=== PATIENT | male | born 1965 | race African-American/Black ===

== ENCOUNTER 2020-03-22 10:33 | Inpatient (IN) | payer OTHER ==
--- NOTE | 2020-03-22 10:43 | PDOC ---
Rapid Medical Evaluation Time Seen by Provider: 03/22/20 10:39 Medical Evaluation: Allergies Allergy/AdvReac Type Severity Reaction Status Date / Time Penicillins Allergy Hives Verified 03/22/20 10:39 03/22/20 10:39 CC: esrd on HD ( last 03/19), hx prostate cancer and does not f/u for it, now with swollen and painful testicles. Exam: scrotal area with generalized tenderness Plan: scrotal u/s
--- NOTE | 2020-03-22 12:36 | PDOC ---
History of Present Illness - General Chief Complaint: Pain, Acute Stated Complaint: URINATION PROBLEMS Time Seen by Provider: 03/22/20 10:39 - History of Present Illness Initial Comments: 03/22/20 12:31 54-year-old maleWith a past medical history of diabetes renal disease on dialysis and prostate cancer presents for left-sided testicle pain going on for years increased today without any precipitating event Past History - Medical History Allergies/Adverse Reactions: Allergies Allergy/AdvReac Type Severity Reaction Status Date / Time Penicillins Allergy Hives Verified 03/22/20 10:39 Home Medications: Ambulatory Orders Amlodipine Besylate [Norvasc -] 10 mg PO ASDIR 02/24/15 Aspirin [ASA -] 81 mg PO DAILY 02/24/15 Atorvastatin Ca [Lipitor -] 40 mg PO HS 02/24/15 Furosemide [Lasix -] 40 mg PO DAILY 02/24/15 Hydralazine HCl 100 mg PO ASDIR 02/24/15 Insulin Glargine,Hum.rec.anlog [Lantus Solostar PEN (NF)] 15 units SQ HS 02/24/15 Sevelamer Carbonate [Renvela] 800 mg PO TID 02/24/15 Calcium Carbonate [Calcium] 500 mg PO TID 10/09/16 Cinacalcet HCl [Sensipar] 60 mg PO DAILY 10/09/16 Lisinopril [Prinivil -] 40 mg PO ASDIR 10/16/16 Anemia: No Asthma: No Cancer: No Cardiac Disorders: No CVA: No COPD: Yes CHF: No Dementia: No Diabetes: Yes (IDDM) Dialysis: Yes (M-W-) GI Disorders: No HTN: Yes Hypercholesterolemia: Yes Liver Disease: No Seizures: No Thyroid Disease: No - Immunization History Immunization Up to Date: Yes - Psycho-Social/Smoking History Smoking History: Current every day smoker Have you smoked in the past 12 months: Yes Number of Cigarettes Smoked Daily: 3 Information on smoking cessation initiated: No 'Breaking Loose' booklet given: 10/16/16 - Substance Abuse Hx (Audit-C & DAST Scrn) How often the patient has a drink containing alcohol: Never Score: In Men: 4 or > Positive; In Women: 3 or > Positive: 0 Screen Result (Pos requires Nsg. Audit-10AR): Negative Review of Systems - Review of Systems : Yes: See HPI *Physical Exam - Vital Signs Last Vital Signs Temp Pulse Resp BP Pulse Ox 97.9 F 90 20 110/76 98 03/22/20 10:43 03/22/20 10:39 03/22/20 10:39 03/22/20 10:39 03/22/20 10:39 - Physical Exam 03/22/20 12:35 Left side of the scrotum is large hard with normal skin color and temperature there is tenderness. Medical Decision Making - Medical Decision Making 03/22/20 12:36 Examination and ultrasound consistent with an incarcerated irreducible hernia patient to be admitted to surgery and taken to the operating room lab work ordered Discharge - Discharge Information Problems reviewed: Yes Clinical Impression/Diagnosis: Hernia of scrotum Condition: Stable - Admission Yes - Follow up/Referral - Patient Discharge Instructions - Post Discharge Activity
--- NOTE | 2020-03-22 12:49 | PDOC ---
*Physical Exam - Vital Signs Last Vital Signs Temp Pulse Resp BP Pulse Ox 97.9 F 90 20 110/76 98 03/22/20 10:43 03/22/20 10:39 03/22/20 10:39 03/22/20 10:39 03/22/20 10:39 - Physical Exam 03/22/20 12:46 Awake alert patient is uncomfortable in pain lungs are clear bilaterally heart is regular with any murmurs rubs or gallops abdomen is noted for a lower anterior abdominal wall hernia which is reducible. He also has a large palpable inguinal mass into the scrotum there is tenderness at the left testicle appears to be a hernia which is unreducible extremities are warm well perfused patient is awake alert and oriented x3 ED Treatment Course - RADIOLOGY Radiology Studies Ordered: Category Date Time Status CXRPORT [CHEST X-RAY PORTABLE*] [RAD] Stat Radiology 03/22/20 12:46 Ordered Medical Decision Making - Medical Decision Making 03/22/20 12:47 54-year-old male history of end-stage renal disease hypertension hyperlipidemia and diabetes here today with a left scrotal pain and a inguinal mass since last evening. Patient states the pain is severe 10 out of 10 with no radiation he noted swelling last evening has been unable to reduce it states that he had a previous upper abdominal hernia repair done at [place] many years ago but otherwise no recent abdominal surgeries no nausea no vomiting did not take anything for pain prior to arrival. Patient does receive dialysis Sunday he did not go to dialysis today due to his severe pain Patient was seen and examined in conjunction with Roldan Schneider on my examination he has an reducible left inguinal hernia patient had been sent previously for a scrotal ultrasound shows decreased flow to left testicle plan admission surgery consult discussed with Dr. Burk and his PA Pratibha who will see the patient in the ED patient to be admitted n.p.o. will order morphine for pain control Discharge - Discharge Information Problems reviewed: Yes Clinical Impression/Diagnosis: Hernia of scrotum Condition: Stable - Follow up/Referral - Patient Discharge Instructions - Post Discharge Activity
[2020-03-22] MEDS ORDERED: morphine CARPU-JECT 4 MG/1 ML DISP.SYRIN IVPUSH ONE (12:54)
[2020-03-22] MEDS ORDERED: morphine SULFATE 4 MG/ML VIAL ONE (12:58)
[2020-03-22 13:09] LABS: BASO % 0.2 % (0-2.0); EOS % 2.2 % (0-4.5); HEMATOCRIT 43.1 % (35.4-49); HEMOGLOBIN 13.8 GM/dL (11.7-16.9); LYMPH % 19.7 % (8-40); MCH 31.4 pg (25.7-33.7); MCHC 32.1 g/dl (32.0-35.9); MEAN CELL VOLUME 98.1 fl (80-96); MEAN PLT VOLUME 7.9 fl (7.5-11.1); MONO % 7.2 % (3.8-10.2); NEUT % 70.7 % (42.8-82.8); PLATELET COUNT 276 K/MM3 (134-434); RDW 15.8 % (11.9-15.9); WHITE BLOOD COUNT 6.6 K/mm3 (4.0-10.0)
--- NOTE | 2020-03-22 13:41 | CONSULT ---
- Consultation REQUESTING PROVIDER: CONSULT REQUEST: We have been asked to surgically evaluate this patient for left inguinal mass. PCP:Urbano Burk MD HISTORY OF PRESENT ILLNESS: The patient is a 54 yo male with a pmhx of HTN, high cholesterol and diabetes. He presented to the ER with acute pain and a non- reducible mas to his left groin since yesterday. He had some vomiting at home, currently he is having constant pain with some relief with pain medications. No CP, SOB or fevers. He has had a mass to his left groin that has reduced in the past and became soft. Today, he complains that he remains out and hard, tender to touch. Approximately 5 years ago he was diagnosed with prostate cancer after a biopsy, he has not followed up or had any treatment for his prostate. The patient doesn't make urine. He has been on HD for approximately 6 years. He had a abd hernia repaired several years ago, he has noted a mass near his midline incision for a while which doesn't reduce PMHx: prostate cancer, HTN, high cholesterol, diabetes PSHx: abd hernia repair, left AVF Home Medications Medication Instructions Recorded Amlodipine Besylate [Norvasc -] 10 mg PO ASDIR 02/24/15 Aspirin [ASA -] 81 mg PO DAILY 02/24/15 Atorvastatin Ca [Lipitor -] 40 mg PO HS 02/24/15 Furosemide [Lasix -] 40 mg PO DAILY 02/24/15 Hydralazine HCl 100 mg PO ASDIR 02/24/15 Insulin Glargine,Hum.rec.anlog 15 units SQ HS 02/24/15 [Lantus Solostar PEN (NF)] Sevelamer Carbonate [Renvela] 800 mg PO TID 02/24/15 Calcium Carbonate [Calcium] 500 mg PO TID 10/09/16 Cinacalcet HCl [Sensipar] 60 mg PO DAILY 10/09/16 Lisinopril [Prinivil -] 40 mg PO ASDIR 10/16/16 Allergies Allergy/AdvReac Type Severity Reaction Status Date / Time Penicillins Allergy Hives Verified 03/22/20 10:39 REVIEW OF SYSTEMS: CONSTITUTIONAL: Absent: fever, chills CARDIOVASCULAR: Absent: chest pain, palpitations RESPIRATORY: Absent: cough, shortness of breath GASTROINTESTINAL: Absent: abdominal pain, abdominal distension, nausea, vomiting GENITOURINARY: Absent: dysuria-he doens't make urine MUSCULOSKELETAL: Absent: myalgia, back pain HEMATOLOGIC/IMMUNOLOGIC: Absent: easy bleeding, easy bruising PHYSICAL EXAM: GENERAL: Awake, alert, and fully oriented, appears in pain LUNGS: Clear to auscultation bilat anteriorly. No wheezes, and no crackles. No accessory muscle use. HEART: Regular rate and rhythm. No murmurs ABDOMEN: Soft, non-distended, Left inguinal mass with tenderness. No erythema. Midline healed scar above the umbilicus approximately 4 in in length. non-tender mass to incision. No rebound but tenderness with all 4 quadrants of his abdomen. Scrotum: b/l non-tender testicles without masses UPPER EXTREMITIES: RUE with fistula/thrill LOWER EXTREMITIES: 2+ pulses, warm, well-perfused. No calf tenderness. No peripheral edema. NEUROLOGICAL: Normal speech, gait not observed. PSYCH: Cooperative. Good eye contact. Appropriate mood and affect. Vital Signs Temperature 97.9 F 03/22/20 10:43 Pulse Rate 90 03/22/20 10:39 Respiratory Rate 20 03/22/20 10:39 Blood Pressure 110/76 03/22/20 10:39 O2 Sat by Pulse Oximetry (%) 98 03/22/20 10:39 Lab Results WBC 6.6 K/mm3 (4.0-10.0) 03/22/20 11:08 RBC 4.40 M/mm3 (4.00-5.60) 03/22/20 11:08 Hgb 13.8 GM/dL (11.7-16.9) 03/22/20 11:08 Hct 43.1 % (35.4-49) 03/22/20 11:08 MCV 98.1 fl (80-96) H 03/22/20 11:08 MCHC 32.1 g/dl (32.0-35.9) 03/22/20 11:08 RDW 15.8 % (11.9-15.9) 03/22/20 11:08 Plt Count 276 K/MM3 (134-434) 03/22/20 11:08 Laboratory Tests 03/22/20 03/22/20 11:08 13:00 PT with INR 11.90 INR 1.01 Sodium 136 Potassium 4.4 Chloride 90 L Carbon Dioxide 30 Anion Gap 16 BUN 60.1 H Creatinine 13.3 H* Total Bilirubin 0.4 AST 5 L ALT 7 L Alkaline Phosphatase 88 US-large left inguinal hernia with possible arterial compromise to the left testicle. No flow flow seen on doppler exam. EKG-NSR rate 77 Problem List - Problems (1) Incarcerated left inguinal hernia Assessment/Plan: pt with tender non-reducible left inguinal mass with ultrasound finding of thickened bowel and no flow to the left testicle Last meal this am, sip of water with meds. The patient was scheduled for an emergent surgery today, repair of left inguinal hernia with possible bowel resection/orrchiectomy Admit to the medical service Case d/w Dr. Burk Problems reviewed: Yes Code(s): K40.30 - UNIL INGUINAL HERNIA, W OBST, W/O GANGR, NOT SPCF RECUR (2) ESRD on hemodialysis Assessment/Plan: pt with RUE fistula, K 4.4 today and pt was seen by Renal, cleared for emergency surgery. He doesn't appear to be fluid overloaded and plan for Hd after his surgery Monitor electrolytes daily and HD as per renal Gently IV fluid hydration with NS-30 ml/hr Code(s): N18.6 - END STAGE RENAL DISEASE; Z99.2 - DEPENDENCE ON RENAL DIALYSIS Visit type - Case Type Case Type: ED Admission - Emergency Emergency Visit: Yes ED Registration Date: 03/22/20 Care time: The patient presented to the Emergency Department on the above date and was hospitalized for further evaluation of their emergent condition. - New patient This patient is new to me today: Yes Date on this admission: 03/22/20
[2020-03-22 13:42] LABS: ALBUMIN 3.8 g/dl (3.4-5.0); BILIRUBIN,TOTAL 0.4 mg/dL (0.2-1); BLOOD UREA NITROGEN 60.1 mg/dL (7-18); CALCIUM 9.7 mg/dL (8.5-10.1); POTASSIUM 4.4 mmol/L (3.5-5.1); TOT PROT 7.4 g/dl (6.4-8.2)
[2020-03-22 13:48] LABS: INR 1.01 (0.83-1.09); PROTHROMBIN TIME (PATIENT) 11.9 SEC (9.7-13.0)
[2020-03-22 13:50] LABS: CREATININE 13.3 mg/dL (0.55-1.3)
--- NOTE | 2020-03-22 14:14 | CONSULT ---
Consult Consult Specialty:: Nephrology Reason for Consultation:: ESRD - History of Present Illness Chief Complaint: left groin pain History of Present Illness: Pt is a 54 year old gentleman with pmhx of esrd, dm, htn, hld, and elevated psa who presents to the ER with severe left groin pain. He says that pain began yesterday. He was found to have a possibly strangulated hernia with no arterial flow to the left testicle. He will be evaluated by surgery. He is due for HD today as his last session was Sunday. he denies shortness of breath. - History Source History Provided By: Patient, Medical Record - Past Medical History Cardio/Vascular: Yes: HTN, Hyperlipdemia Renal/: Yes: Renal Inusuff, Hemodialysis Endocrine: Yes: Diabetes Mellitus - Past Surgical History Past Surgical History: Yes: AV Fistula/Graft - Alcohol/Substance Use Hx Alcohol Use: No - Smoking History Smoking history: Current every day smoker Have you smoked in the past 12 months: Yes Aproximately how many cigarettes per day: 3 Home Medications - Allergies Allergies/Adverse Reactions: Allergies Allergy/AdvReac Type Severity Reaction Status Date / Time Penicillins Allergy Hives Verified 03/22/20 10:39 - Home Medications Home Medications: Ambulatory Orders Amlodipine Besylate [Norvasc -] 10 mg PO ASDIR 02/24/15 Aspirin [ASA -] 81 mg PO DAILY 02/24/15 Atorvastatin Ca [Lipitor -] 40 mg PO HS 02/24/15 Furosemide [Lasix -] 40 mg PO DAILY 02/24/15 Hydralazine HCl 100 mg PO ASDIR 02/24/15 Insulin Glargine,Hum.rec.anlog [Lantus Solostar PEN (NF)] 15 units SQ HS 02/24/15 Sevelamer Carbonate [Renvela] 800 mg PO TID 02/24/15 Calcium Carbonate [Calcium] 500 mg PO TID 10/09/16 Cinacalcet HCl [Sensipar] 60 mg PO DAILY 10/09/16 Lisinopril [Prinivil -] 40 mg PO ASDIR 10/16/16 Family Medical History Family History: Denies Review of Systems - Review of Systems Constitutional: reports: Malaise Eyes: reports: No Symptoms HENT: reports: No Symptoms Neck: reports: No Symptoms Cardiovascular: reports: No Symptoms Respiratory: reports: No Symptoms Gastrointestinal: reports: Abdominal Pain Genitourinary: reports: Testicular Pain, Testicular Swelling Musculoskeletal: reports: No Symptoms Integumentary: reports: No Symptoms Neurological: reports: No Symptoms Endocrine: reports: No Symptoms Hematology/Lymphatic: reports: No Symptoms Psychiatric: reports: No Symptoms Physical Exam Vital Signs: Vital Signs Temperature 97.9 F 03/22/20 10:43 Pulse Rate 90 03/22/20 10:39 Respiratory Rate 20 03/22/20 10:39 Blood Pressure 110/76 03/22/20 10:39 O2 Sat by Pulse Oximetry (%) 98 03/22/20 10:39 Constitutional: Yes: Calm Eyes: Yes: Conjunctiva Clear HENT: Yes: Atraumatic Neck: Yes: Supple Cardiovascular: Yes: S1, S2 Respiratory: Yes: CTA Bilaterally Gastrointestinal: Yes: Hernia Renal/: Yes: Other (hernia) Musculoskeletal: Yes: WNL Extremities: Yes: WNL Edema: No Neurological: Yes: Oriented Psychiatric: Yes: Oriented Labs: CBC, BMP 03/22/20 11:08 03/22/20 11:08 Laboratory Tests 03/22/20 03/22/20 03/22/20 11:08 11:08 12:50 Hgb 13.8 Sodium 136 Potassium 4.4 BUN 60.1 H Creatinine 13.3 H* COVID-19 ([facility]) Pending Imaging - Results Ultrasound: Report Reviewed Problem List - Problems (1) ESRD on hemodialysis Code(s): N18.6 - END STAGE RENAL DISEASE; Z99.2 - DEPENDENCE ON RENAL DIALYSIS (2) Incarcerated left inguinal hernia Code(s): K40.30 - UNIL INGUINAL HERNIA, W OBST, W/O GANGR, NOT SPCF RECUR Assessment/Plan Current Medications Generic Name Dose Route Start Last Admin Trade Name Freq PRN Reason Stop Dose Admin Fentanyl 50 mcg 03/22/20 14:41 Sublimaze Injection - IVPUSH [id number] PRN PAIN-PACU ORDER X 4 DOSES ONLY Lactated Ringer's 1,000 mls @ 125 mls/hr 03/22/20 14:45 03/22/20 15:10 Lactated Ringers Solution IV 125 mls/hr ASDIR ANU Administration Ondansetron HCl 4 mg 03/22/20 14:41 Zofran Injection IVPUSH Q6H PRN NAUSEA AND/OR VOMITING Promethazine HCl 12.5 mg 03/22/20 14:41 Phenergan Injection - IVPUSH Q6H PRN NAUSEA-FOR RESCUE AFTER 15 MIN Impression 1. ESRD 2. hernia 3. htn 4. DM 5. hld 6. elevated psa not evaluated Plan - surgery eval - potassium and lytes stable, can dialyze tomorrow - decrease rate of fluids - pt has been npo all day - monitor bp - discussed with er team - discussed with surgery - cxr negative
--- NOTE | 2020-03-22 14:15 | EKG ---
Test Reason : Blood Pressure : / mmHG Vent. Rate : 077 BPM Atrial Rate : 077 BPM P-R Int : 154 ms QRS Dur : 100 ms QT Int : 382 ms P-R-T Axes : 072 061 073 degrees QTc Int : 432 ms NORMAL SINUS RHYTHM NORMAL ECG WHEN COMPARED WITH ECG OF 25-FEB-2015 09:05, NO SIGNIFICANT CHANGE WAS FOUND Confirmed by YAJAIRA TUCKER MD ([id number]) on 03/22/2020 2:14:59 PM Referred By: Confirmed By:YAJAIRA TUCKER MD
[2020-03-22] MEDS ORDERED: PROMETHAZINE HCL 25 MG/1 ML VIAL IVPUSH PRN ×2 (14:41→23:50)
[2020-03-22] MEDS ORDERED: ONDANSETRON 4 MG/2 ML VIAL IVPUSH PRN ×2 (14:41→23:50)
[2020-03-22] MEDS ORDERED: LACTATED RINGERS SOLUTION 1,000 ML IV SCH (14:45)
[2020-03-22] MEDS ORDERED: SODIUM CHLORIDE 0.45% 1,000 ML IV SCH ×2 (15:45→23:50)
--- NOTE | 2020-03-22 16:02 | HP ---
CHIEF COMPLAINT: abdominal pain PCP: Dr Keller HISTORY OF PRESENT ILLNESS: 54 M ESRD on HD, HTN, HLD, IDDM, presents with lower abdominal and scrotal pain. Scrotal US done, showing L hernial/scrotal sac with bowel and severe TTP by US tech. Surgery notified, patient highly suspected to have incarcerated bowel. Denies fever/chills/SOB/cough/CP/LOC. Endorses mostly L scrotal pain and lower abdominal pain. Had hernia repair years ago but never felt pain likely this previously. ER course was notable for: (1) scrotal US with bowel in L scrotal sac, TTP (2) Evaluated by Renal service Recent Travel: denies PAST MEDICAL HISTORY: as above PAST SURGICAL HISTORY: L hernia repair years ago Social History: denies current x3 Allergies Penicillins Allergy (Verified 03/22/20 10:39) Hives HOME MEDICATIONS: Home Medications Medication Instructions Recorded Amlodipine Besylate [Norvasc -] 10 mg PO ASDIR 02/24/15 Aspirin [ASA -] 81 mg PO DAILY 02/24/15 Atorvastatin Ca [Lipitor -] 40 mg PO HS 02/24/15 Furosemide [Lasix -] 40 mg PO DAILY 02/24/15 Hydralazine HCl 100 mg PO ASDIR 02/24/15 Insulin Glargine,Hum.rec.anlog 15 units SQ HS 02/24/15 [Lantus Solostar PEN (NF)] Sevelamer Carbonate [Renvela] 800 mg PO TID 02/24/15 Calcium Carbonate [Calcium] 500 mg PO TID 10/09/16 Cinacalcet HCl [Sensipar] 60 mg PO DAILY 10/09/16 Lisinopril [Prinivil -] 40 mg PO ASDIR 10/16/16 PHYSICAL EXAMINATION Vital Signs - 24 hr 03/22/20 03/22/20 10:39 10:43 Temperature 97.9 F Pulse Rate 90 Respiratory 20 Rate Blood Pressure 110/76 O2 Sat by Pulse 98 Oximetry (%) GENERAL: Awake, alert, and fully oriented, in no acute distress. AAox3 HEENT NC/aT, mild scleral icterus, neck supple, dry MM, no JVD LUNGS: Breath sounds equal, clear to auscultation bilaterally. No wheezes, and no crackles. No accessory muscle use. HEART: Regular rate and rhythm, normal S1 and S2 without murmur, rub or gallop. ABDOMEN: TTP mid-lower abdomen w/ guarding, BS decreased, mildly distended MUSCULOSKELETAL: Normal range of motion at all joints. No bony deformities or tenderness. No CVA tenderness. UPPER EXTREMITIES: 2+ pulses, warm, well-perfused. No cyanosis. No clubbing. No peripheral edema. LUE AVF w/ good thrill LOWER EXTREMITIES: 2+ pulses, warm, well-perfused. No calf tenderness. No peripheral edema. no Scrotal swelling appreciated Laboratory Results - last 24 hr 03/22/20 03/22/20 03/22/20 11:08 11:08 13:00 WBC 6.6 RBC 4.40 Hgb 13.8 Hct 43.1 MCV 98.1 H MCH 31.4 MCHC 32.1 RDW 15.8 Plt Count 276 MPV 7.9 Absolute Neuts (auto) 4.6 Neutrophils % 70.7 Lymphocytes % 19.7 Monocytes % 7.2 Eosinophils % 2.2 Basophils % 0.2 Nucleated RBC % 0 PT with INR 11.90 INR 1.01 Sodium 136 Potassium 4.4 Chloride 90 L Carbon Dioxide 30 Anion Gap 16 BUN 60.1 H Creatinine 13.3 H* Est GFR (CKD-EPI)AfAm 4.28 Est GFR (CKD-EPI)NonAf 3.69 Random Glucose 138 H Calcium 9.7 Total Bilirubin 0.4 AST 5 L ALT 7 L Alkaline Phosphatase 88 Total Protein 7.4 Albumin 3.8 Blood Type Antibody Screen 03/22/20 13:00 WBC RBC Hgb Hct MCV MCH MCHC RDW Plt Count MPV Absolute Neuts (auto) Neutrophils % Lymphocytes % Monocytes % Eosinophils % Basophils % Nucleated RBC % PT with INR INR Sodium Potassium Chloride Carbon Dioxide Anion Gap BUN Creatinine Est GFR (CKD-EPI)AfAm Est GFR (CKD-EPI)NonAf Random Glucose Calcium Total Bilirubin AST ALT Alkaline Phosphatase Total Protein Albumin Blood Type O POSITIVE Antibody Screen Negative Home Medications Medication Instructions Recorded Amlodipine Besylate [Norvasc -] 10 mg PO ASDIR 02/24/15 Aspirin [ASA -] 81 mg PO DAILY 02/24/15 Atorvastatin Ca [Lipitor -] 40 mg PO HS 02/24/15 Furosemide [Lasix -] 40 mg PO DAILY 02/24/15 Hydralazine HCl 100 mg PO ASDIR 02/24/15 Insulin Glargine,Hum.rec.anlog 15 units SQ HS 02/24/15 [Lantus Solostar PEN (NF)] Sevelamer Carbonate [Renvela] 800 mg PO TID 02/24/15 Calcium Carbonate [Calcium] 500 mg PO TID 10/09/16 Cinacalcet HCl [Sensipar] 60 mg PO DAILY 10/09/16 Lisinopril [Prinivil -] 40 mg PO ASDIR 10/16/16 Current Medications Generic Name Dose Route Start Last Admin Trade Name Freq PRN Reason Stop Dose Admin Fentanyl 50 mcg 03/22/20 14:41 Sublimaze Injection - IVPUSH [id number] PRN PAIN-PACU ORDER X 4 DOSES ONLY Sodium Chloride 1,000 mls @ 50 mls/hr 03/22/20 15:45 03/22/20 15:49 1/2 Normal Saline IV 03/23/20 15:33 50 mls/hr ASDIR ANU Administration Ondansetron HCl 4 mg 03/22/20 14:41 Zofran Injection IVPUSH Q6H PRN NAUSEA AND/OR VOMITING Promethazine HCl 12.5 mg 03/22/20 14:41 Phenergan Injection - IVPUSH Q6H PRN NAUSEA-FOR RESCUE AFTER 15 MIN ASSESSMENT/PLAN: 54 M Suspected bowel incarceration Inguinal hernia ESRD oN HD HTN HLD CHF IDDM Plan: NPO, cautious hydration (30cc/hr), correct lytes, no indication for HD today hold BP meds, send lactic acid/CK levels, no fever or signs of sepsis, will hold off until surgery for eva-operative abx Possibly for urgent surgery today for orchiectomy/bowel resection/hernia repair, Surgery team aware hold AC DVT ppx: SCD for now Visit type - Emergency Visit Emergency Visit: Yes ED Registration Date: 03/22/20 Care time: The patient presented to the Emergency Department on the above date and was hospitalized for further evaluation of their emergent condition. - New Patient This patient is new to me today: Yes Date on this admission: 03/22/20 - Critical Care Critical Care patient: No
[2020-03-22] MEDS ORDERED: LIDOCAINE HCL 1%, 10 MG/ML (20ML VIAL) ONE (17:21)
[2020-03-22] MEDS ORDERED: BUPIVACAINE HCL 50 ML ONE ×2 (17:22→19:00)
[2020-03-22] MEDS ORDERED: morphine CARPU-JECT 2 MG/1 ML DISP.SYRIN IVPUSH ONE (18:25)
[2020-03-22] MEDS ORDERED: MORPHINE SULFATE 2 MG/ML VIAL ONE (18:27)
[2020-03-22] MEDS ORDERED: MIDAZOLAM HCL 2 MG/2 ML SINGLE DOSE VIAL ONE (19:00)
[2020-03-22] MEDS ORDERED: PROPOFOL 20 ML ONE (19:00)
[2020-03-22] MEDS ORDERED: ROCURONIUM BROMIDE 50 MG/5 ML SYRINGE ONE (19:03)
[2020-03-22] MEDS ORDERED: ceFAZolin SODIUM 1 GM VIAL IVPB ONE (19:10)
[2020-03-22] MEDS ORDERED: BUPIVACAINE HCL/PF 0.5% (5 MG/ML) 30 ML VIAL IJ ONE (19:27)
[2020-03-22] MEDS ORDERED: LIDOCAINE HCL 1%, 10 MG/ML (20ML VIAL) NR ONE (19:27)
[2020-03-22] MEDS ORDERED: ACETAMINOPHEN INJECTION 100 ML IVPB ONE (20:27)
[2020-03-22] MEDS ORDERED: KETOROLAC TROMETHAMINE 30 MG/1 ML VIAL ONE (20:30)
[2020-03-22] MEDS ORDERED: NEOSTIGMINE METHYLSULFATE 0.5 MG/ML - 10 ML MDV ONE (21:27)
[2020-03-22] MEDS ORDERED: GLYCOPYRROLATE 0.2 MG/1 ML VIAL ONE (21:27)
[2020-03-22] MEDS ORDERED: morphine SULFATE 4 MG/ML VIAL IVPUSH PRN (22:02)
[2020-03-22] MEDS ORDERED: ACETAMINOPHEN 1000 MG/100 ML VIAL (NON FORMULARY) IVPB PRN (22:02)
[2020-03-22] MEDS ORDERED: amLODIPine BESYLATE 10 MG TABLET (FP) PO SCH (22:30)
[2020-03-22] MEDS ORDERED: PATIENT'S OWN MEDICATION (NON-FORMULARY) (Hydralazine Hcl [Hydralazine Hcl] 100 MG) PO SCH (22:30)
[2020-03-22] MEDS ORDERED: PATIENT'S OWN MEDICATION (NON-FORMULARY) (Lisinopril [Prinivil -] 40 MG) PO SCH (22:30)
[2020-03-22] MEDS: INSULIN SLIDING SCALE (NOVOLOG) 1 VIAL SQ SCH (23:20)
[2020-03-23 00:35] VITALS: BMI 23.7
[2020-03-23] MEDS: CALCIUM CARBONATE SUSPENSION - 500 MG/5 ML ML PO SCH ×3 (05:47→21:34)
[2020-03-23] MEDS ORDERED: CALCIUM CARBONATE 500 MG PO SCH (06:00)
[2020-03-23] MEDS: INSULIN SLIDING SCALE (NOVOLOG) 1 VIAL SQ SCH ×3 (06:34→17:35)
[2020-03-23 08:21] LABS: HEMATOCRIT 37.3 % (35.4-49); HEMOGLOBIN 12.3 GM/dL (11.7-16.9); MCH 32.2 pg (25.7-33.7); MCHC 32.9 g/dl (32.0-35.9); MEAN CELL VOLUME 97.9 fl (80-96); MEAN PLT VOLUME 8.6 fl (7.5-11.1); PLATELET COUNT 231 K/MM3 (134-434); RBC 3.81 M/mm3 (4.00-5.60); RDW 15.8 % (11.9-15.9); WHITE BLOOD COUNT 3.6 K/mm3 (4.0-10.0)
[2020-03-23 08:51] LABS: ALBUMIN 3.2 g/dl (3.4-5.0); BILIRUBIN,TOTAL 0.4 mg/dL (0.2-1); CALCIUM 8.8 mg/dL (8.5-10.1); POTASSIUM 5.4 mmol/L (3.5-5.1); TOT PROT 6.5 g/dl (6.4-8.2)
[2020-03-23] MEDS ORDERED: FUROSEMIDE 40 MG TABLET (FP) PO SCH (10:00)
--- NOTE | 2020-03-23 10:32 | PN ---
Progress Note (short form) - Note Progress Note: POD 1, s/p Left incarcerated hernia (inguinal) repair with mesh, repair of umbilical hernia Pt seen and examined. Reports he is feeling well. Denies pain. Has not passed flatus yet. Has not been oob. Not voiding (is on dialysis and reports he does not make much urine). Denies n/v/d. Vital Signs Temp 98.2 F 03/23/20 05:00 Pulse 90 03/23/20 05:00 Resp 19 03/23/20 05:00 BP 98/57 L 03/23/20 05:00 Pulse Ox 96 03/22/20 23:00 Intake & Output 03/22/20 03/22/20 03/23/20 11:59 23:59 11:59 Intake Total 500 350 Output Total 50 Balance 450 350 Weight 150 lb 151 lb 4.8 oz Intake: IV 500 350 1/2 Normal Saline 1,000 50 350 ml @ 50 mls/hr IV ASDIR ANU Rx#:[id number] Output: Urine 0 Estimated Blood Loss 50 Other: Voiding Method Toilet Toilet Bowel Movement No Height 5 ft 7 in 5 ft 7 in Body Mass Index (BMI) 23.5 23.7 Weight Measurement Method Built in [facility] Weight Measurement Method Est/Stated by Patient CBC, BMP 03/23/20 07:19 03/23/20 07:19 Gen: awake, alert, nad Resp Unlabored on RA Abdo: soft, no ttp dressing midline, c/d/i, surrounding erythema or drainage. hypoactive bowel sounds. ExT: RUE with aneurysmal avf, palpable thrill, no scabbing noted A/P: 54 y/o M w/ PMHx esrd on hd via rue avf (MWF), dm, htn, hld, and elevated psa a/w severe left groin pain found to have incarcerated inguinal hernia now POD 1, s/p Left incarcerated hernia (inguinal) repair with mesh, repair of umbilical hernia. VSS Doing well post op Planned for HD today -Clear liquids ordered -OOB as tolerated -Pain control -HD per renal d/w attending Dr Burk
[2020-03-23] MEDS ORDERED: SODIUM CHLORIDE 250 ML IV PRN (10:41)
[2020-03-23] MEDS ORDERED: SODIUM CHLORIDE 1,000 ML IV STA (11:19)
[2020-03-23] MEDS: SEVELAMER CARBONATE 800 MG TAB (FP) PO SCH ×3 (12:09→17:09)
--- NOTE | 2020-03-23 12:20 | PN ---
Physical Exam: SUBJECTIVE: Patient seen and examined at bedside. Feels ok. For HD today. OBJECTIVE: Vital Signs Period Temp Pulse Resp BP Sys/Berg Pulse Ox Last 24 Hr 97.5 F-99.4 F 80-97 16-20 88-115/51-66 95-100 Gen: AAOx3, NAD HEENT: NCAT, EOMI Neck: supple, no jvd Cardio: rrr, normal s1s2, no mrg Pulm: fine rales b/l bases Abd: laparotomy dressings cdi, no BS heard, soft, nontender Ext: no edema Laboratory Results - last 24 hr 03/22/20 03/22/20 03/22/20 11:08 11:08 13:00 WBC 6.6 RBC 4.40 Hgb 13.8 Hct 43.1 MCV 98.1 H MCH 31.4 MCHC 32.1 RDW 15.8 Plt Count 276 MPV 7.9 Absolute Neuts (auto) 4.6 Neutrophils % 70.7 Lymphocytes % 19.7 Monocytes % 7.2 Eosinophils % 2.2 Basophils % 0.2 Nucleated RBC % 0 PT with INR 11.90 INR 1.01 Sodium 136 Potassium 4.4 Chloride 90 L Carbon Dioxide 30 Anion Gap 16 BUN 60.1 H Creatinine 13.3 H* Est GFR (CKD-EPI)AfAm 4.28 Est GFR (CKD-EPI)NonAf 3.69 POC Glucometer Random Glucose 138 H Calcium 9.7 Total Bilirubin 0.4 AST 5 L ALT 7 L Alkaline Phosphatase 88 Creatine Kinase 73 Total Protein 7.4 Albumin 3.8 Blood Type Antibody Screen 03/22/20 03/22/20 03/22/20 13:00 22:00 23:29 WBC RBC Hgb Hct MCV MCH MCHC RDW Plt Count MPV Absolute Neuts (auto) Neutrophils % Lymphocytes % Monocytes % Eosinophils % Basophils % Nucleated RBC % PT with INR INR Sodium Potassium Chloride Carbon Dioxide Anion Gap BUN Creatinine Est GFR (CKD-EPI)AfAm Est GFR (CKD-EPI)NonAf POC Glucometer 143 140 Random Glucose Calcium Total Bilirubin AST ALT Alkaline Phosphatase Creatine Kinase Total Protein Albumin Blood Type O POSITIVE Antibody Screen Negative 03/23/20 03/23/20 03/23/20 06:18 07:19 07:19 WBC 3.6 L RBC 3.81 L Hgb 12.3 Hct 37.3 MCV 97.9 H MCH 32.2 MCHC 32.9 RDW 15.8 Plt Count 231 MPV 8.6 Absolute Neuts (auto) Neutrophils % Lymphocytes % Monocytes % Eosinophils % Basophils % Nucleated RBC % PT with INR INR Sodium 135 L Potassium 5.4 H Chloride 90 L Carbon Dioxide 29 Anion Gap 17 H BUN 84.0 H Creatinine 14.0 H* Est GFR (CKD-EPI)AfAm 4.02 Est GFR (CKD-EPI)NonAf 3.47 POC Glucometer 105 Random Glucose 97 Calcium 8.8 Total Bilirubin 0.4 AST 6 L ALT 7 L Alkaline Phosphatase 81 Creatine Kinase Total Protein 6.5 Albumin 3.2 L Blood Type Antibody Screen 03/23/20 11:48 WBC RBC Hgb Hct MCV MCH MCHC RDW Plt Count MPV Absolute Neuts (auto) Neutrophils % Lymphocytes % Monocytes % Eosinophils % Basophils % Nucleated RBC % PT with INR INR Sodium Potassium Chloride Carbon Dioxide Anion Gap BUN Creatinine Est GFR (CKD-EPI)AfAm Est GFR (CKD-EPI)NonAf POC Glucometer 103 Random Glucose Calcium Total Bilirubin AST ALT Alkaline Phosphatase Creatine Kinase Total Protein Albumin Blood Type Antibody Screen Active Medications Generic Name Dose Route Start Last Admin Trade Name Freq PRN Reason Stop Dose Admin Acetaminophen 1,000 mg 03/22/20 22:02 Ofirmev Injection - IVPB 03/23/20 22:02 Q6H PRN pain 1-3 or fever Atorvastatin Calcium 40 mg 03/23/20 22:00 Lipitor - PO HS ANU Calcium Carbonate 500 mg 03/23/20 06:00 03/23/20 05:47 Calcium Carb Oral Suspension - PO Not Given TID ANU Cinacalcet 60 mg 03/23/20 10:00 Sensipar - PO DAILY ANU Fentanyl 50 mcg 03/22/20 23:50 Sublimaze Injection - IVPUSH [id number] PRN PAIN-PACU ORDER X 4 DOSES ONLY Furosemide 40 mg 03/23/20 10:00 03/23/20 11:52 Lasix - PO Not Given DAILY ANU Sodium Chloride 1,000 mls @ 50 mls/hr 03/22/20 23:50 03/22/20 23:55 1/2 Normal Saline IV 03/23/20 15:33 Not Given ASDIR ANU Sodium Chloride 250 mls @ 3,000 mls/hr 03/23/20 10:41 Normal Saline - IV 03/24/20 10:41 PRN PRN Hypotension during Dialysis Insulin Aspart 1 vial 03/22/20 22:15 03/23/20 11:52 Novolog Vial Sliding Scale - SQ Not Given TIDAC [facility] Protocol Morphine Sulfate 4 mg 03/22/20 22:02 Morphine Sulfate IVPUSH Q4H PRN PAIN LEVEL 6-10 Ondansetron HCl 4 mg 03/22/20 23:50 Zofran Injection IVPUSH Q6H PRN NAUSEA AND/OR VOMITING Promethazine HCl 12.5 mg 03/22/20 23:50 Phenergan Injection - IVPUSH Q6H PRN NAUSEA-FOR RESCUE AFTER 15 MIN Sevelamer Carbonate 800 mg 03/23/20 08:00 Renvela - PO TIDCM [facility] ASSESSMENT/PLAN: 54-year-old maleWith a past medical history of diabetes, renal disease on dialysis and prostate cancer presented for left-sided testicle pain going on for years increased the day before admission without any precipitating event. Admitted for incarcerated hernia requiring surgery. Hernia -L inguinal hernia repair with mesh placement (03/22/2020) -pt comfortable post-op -minimal bowel sounds -pain control ESRD -HD per nephro DM -ISS, BGM ACHS Visit type - Emergency Visit Emergency Visit: No - New Patient This patient is new to me today: No - Critical Care Critical Care patient: No ATTENDING PHYSICIAN STATEMENT I saw and evaluated the patient. I reviewed the resident's note and discussed the case with the resident. I agree with the resident's findings and plan as documented. SUBJECTIVE: OBJECTIVE: ASSESSMENT AND PLAN:
--- NOTE | 2020-03-23 12:34 | PN ---
Progress Note (short form) - Note Progress Note: Anesthesia postop note POD#1, S/P left inguinal hernia and ventral hernia under GA. VSS. No apparent post anesthesia complications.
[2020-03-23] MEDS ORDERED: PT OWN MED DRAWER 7, Y5N ONE (16:49)
[2020-03-23] MEDS: CINACALCET HCL 30 MG TAB (FP) PO SCH (17:06)
--- NOTE | 2020-03-23 18:04 | PN ---
Progress Note, Physician History of Present Illness: Pt seen and examined at bedside. He is awake and alert. He had the hernia repair. He feels well. - Current Medication List Current Medications: Active Medications Acetaminophen (Ofirmev Injection -) 1,000 mg IVPB Q6H PRN PRN Reason: pain 1-3 or fever Stop: 03/23/20 22:02 Atorvastatin Calcium (Lipitor -) 40 mg PO HS [facility] Calcium Carbonate (Calcium Carb Oral Suspension -) 500 mg PO TID [facility] Last Admin: 03/23/20 17:09 Dose: 500 mg Documented by: Cinacalcet (Sensipar -) 60 mg PO DAILY [facility] Last Admin: 03/23/20 17:06 Dose: 60 mg Documented by: Fentanyl (Sublimaze Injection -) 50 mcg IVPUSH [id number] PRN PRN Reason: PAIN-PACU ORDER X 4 DOSES ONLY Sodium Chloride (Normal Saline -) 250 mls @ 3,000 mls/hr IV PRN PRN PRN Reason: Hypotension during Dialysis Stop: 03/24/20 10:41 Insulin Aspart (Novolog Vial Sliding Scale -) 1 vial SQ TIDAC [facility]; Protocol Last Admin: 03/23/20 17:35 Dose: Not Given Documented by: Morphine Sulfate (Morphine Sulfate) 4 mg IVPUSH Q4H PRN PRN Reason: PAIN LEVEL 6-10 Ondansetron HCl (Zofran Injection) 4 mg IVPUSH Q6H PRN PRN Reason: NAUSEA AND/OR VOMITING Promethazine HCl (Phenergan Injection -) 12.5 mg IVPUSH Q6H PRN PRN Reason: NAUSEA-FOR RESCUE AFTER 15 MIN Sevelamer Carbonate (Renvela -) 800 mg PO TIDCM [facility] Last Admin: 03/23/20 17:09 Dose: 800 mg Documented by: - Objective Vital Signs: Vital Signs Temperature 98.1 F 03/23/20 11:40 Pulse Rate 80 03/23/20 15:19 Respiratory Rate 18 03/23/20 15:19 Blood Pressure 96/53 L 03/23/20 15:19 O2 Sat by Pulse Oximetry (%) 96 03/22/20 23:00 Constitutional: Yes: Calm Eyes: Yes: Conjunctiva Clear HENT: Yes: Atraumatic Neck: Yes: Supple Cardiovascular: Yes: S1, S2 Respiratory: Yes: CTA Bilaterally Gastrointestinal: Yes: Soft Genitourinary: Yes: WNL Musculoskeletal: Yes: WNL Edema: No Neurological: Yes: Oriented Psychiatric: Yes: Oriented Labs: CBC, BMP 03/23/20 07:19 03/23/20 07:19 INR, PTT INR 1.01 (0.83-1.09) 03/22/20 13:00 Problem List - Problems (1) ESRD on hemodialysis Code(s): N18.6 - END STAGE RENAL DISEASE; Z99.2 - DEPENDENCE ON RENAL DIALYSIS (2) Incarcerated left inguinal hernia Code(s): K40.30 - UNIL INGUINAL HERNIA, W OBST, W/O GANGR, NOT SPCF RECUR Assessment/Plan Current Medications Generic Name Dose Route Start Last Admin Trade Name Freq PRN Reason Stop Dose Admin Acetaminophen 1,000 mg 03/22/20 22:02 Ofirmev Injection - IVPB 03/23/20 22:02 Q6H PRN pain 1-3 or fever Atorvastatin Calcium 40 mg 03/23/20 22:00 Lipitor - PO HS ANU Calcium Carbonate 500 mg 03/23/20 06:00 03/23/20 17:09 Calcium Carb Oral Suspension - PO 500 mg TID ANU Administration Cinacalcet 60 mg 03/23/20 10:00 03/23/20 17:06 Sensipar - PO 60 mg DAILY ANU Administration Fentanyl 50 mcg 03/22/20 23:50 Sublimaze Injection - IVPUSH [id number] PRN PAIN-PACU ORDER X 4 DOSES ONLY Sodium Chloride 250 mls @ 3,000 mls/hr 03/23/20 10:41 Normal Saline - IV 03/24/20 10:41 PRN PRN Hypotension during Dialysis Insulin Aspart 1 vial 03/22/20 22:15 03/23/20 17:35 Novolog Vial Sliding Scale - SQ Not Given TIDAC [facility] Protocol Morphine Sulfate 4 mg 03/22/20 22:02 Morphine Sulfate IVPUSH Q4H PRN PAIN LEVEL 6-10 Ondansetron HCl 4 mg 03/22/20 23:50 Zofran Injection IVPUSH Q6H PRN NAUSEA AND/OR VOMITING Promethazine HCl 12.5 mg 03/22/20 23:50 Phenergan Injection - IVPUSH Q6H PRN NAUSEA-FOR RESCUE AFTER 15 MIN Sevelamer Carbonate 800 mg 03/23/20 08:00 03/23/20 17:09 Renvela - PO 800 mg TIDCM ANU Administration Impression 1. ESRD 2. hernia 3. htn 4. DM 5. hld 6. elevated psa not evaluated Plan - HD today - stop lasix - will give fluid bolus - no UF on HD - pt to start clears - surgery follow up - pt off HD schedule - will evaluate for HD again tomorrow
--- NOTE | 2020-03-23 20:01 | PN ---
Teaching Attending Note Name of Resident: Gianni Levy ATTENDING PHYSICIAN STATEMENT I saw and evaluated the patient. I reviewed the resident's note and discussed the case with the resident. I agree with the resident's findings and plan as documented. SUBJECTIVE: Patient seen and examined at bedside, s/p ex-lap POD#1 for hernia incarceration, feels OK, BP soft side, HD put on hold. OBJECTIVE: GENERAL: Awake, alert, and fully oriented, in no acute distress. AAox3 HEENT NC/aT, mild scleral icterus, neck supple, dry MM, no JVD LUNGS: Breath sounds equal, clear to auscultation bilaterally. No wheezes, and no crackles. No accessory muscle use. HEART: Regular rate and rhythm, normal S1 and S2 without murmur, rub or gallop. ABDOMEN: Abdominal wall dressing, grossly non-tender, no guarding, decreased BS MUSCULOSKELETAL: Normal range of motion at all joints. No bony deformities or tenderness. No CVA tenderness. UPPER EXTREMITIES: 2+ pulses, warm, well-perfused. No cyanosis. No clubbing. No peripheral edema. LUE AVF w/ good thrill LOWER EXTREMITIES: 2+ pulses, warm, well-perfused. No calf tenderness. No eva pheral edema. no Scrotal swelling appreciated Vital Signs - 24 hr 03/22/20 03/22/20 03/22/20 21:50 22:00 22:15 Temperature 99.4 F Pulse Rate 96 H 92 H 95 H Respiratory 20 18 18 Rate Blood Pressure 115/60 109/66 104/61 O2 Sat by Pulse 99 100 100 Oximetry (%) 03/22/20 03/22/20 03/22/20 22:30 22:45 23:00 Temperature 97.5 F L Pulse Rate 95 H 86 88 Respiratory 20 16 19 Rate Blood Pressure 104/59 L 93/61 93/58 L O2 Sat by Pulse 100 95 96 Oximetry (%) 03/23/20 03/23/20 03/23/20 01:56 05:00 09:00 Temperature 98.4 F 98.2 F Pulse Rate 94 H 90 Respiratory 18 19 Rate Blood Pressure 93/58 L 98/57 L O2 Sat by Pulse 92 L Oximetry (%) 03/23/20 03/23/20 03/23/20 10:00 11:40 11:45 Temperature 98.2 F 98.1 F Pulse Rate 88 80 80 Respiratory 18 18 18 Rate Blood Pressure 80/53 L 97/57 L 88/56 L O2 Sat by Pulse Oximetry (%) 03/23/20 03/23/20 03/23/20 12:15 12:45 13:15 Temperature Pulse Rate 80 82 83 Respiratory 18 18 18 Rate Blood Pressure 92/53 L 88/52 L 91/50 L O2 Sat by Pulse Oximetry (%) 03/23/20 03/23/20 03/23/20 13:45 14:15 14:45 Temperature Pulse Rate 80 80 80 Respiratory 18 18 18 Rate Blood Pressure 93/58 L 92/54 L 95/53 L O2 Sat by Pulse Oximetry (%) 03/23/20 03/23/20 15:00 15:19 Temperature Pulse Rate 80 80 Respiratory 18 18 Rate Blood Pressure 95/53 L 96/53 L O2 Sat by Pulse Oximetry (%) Laboratory Results - last 24 hr 03/22/20 03/22/20 03/22/20 11:08 11:08 22:00 WBC RBC Hgb Hct MCV MCH MCHC RDW Plt Count MPV Sodium 136 Potassium 4.4 Chloride 90 L Carbon Dioxide 30 Anion Gap 16 BUN 60.1 H Creatinine 13.3 H* Est GFR (CKD-EPI)AfAm 4.28 Est GFR (CKD-EPI)NonAf 3.69 POC Glucometer 143 Random Glucose 138 H Calcium 9.7 Total Bilirubin 0.4 AST 5 L ALT 7 L Alkaline Phosphatase 88 Creatine Kinase 73 Total Protein 7.4 Albumin 3.8 Prostate Specific Ag 58.40 H 03/22/20 03/23/20 03/23/20 23:29 06:18 07:19 WBC 3.6 L RBC 3.81 L Hgb 12.3 Hct 37.3 MCV 97.9 H MCH 32.2 MCHC 32.9 RDW 15.8 Plt Count 231 MPV 8.6 Sodium Potassium Chloride Carbon Dioxide Anion Gap BUN Creatinine Est GFR (CKD-EPI)AfAm Est GFR (CKD-EPI)NonAf POC Glucometer 140 105 Random Glucose Calcium Total Bilirubin AST ALT Alkaline Phosphatase Creatine Kinase Total Protein Albumin Prostate Specific Ag 03/23/20 03/23/20 03/23/20 07:19 11:48 17:33 WBC RBC Hgb Hct MCV MCH MCHC RDW Plt Count MPV Sodium 135 L Potassium 5.4 H Chloride 90 L Carbon Dioxide 29 Anion Gap 17 H BUN 84.0 H Creatinine 14.0 H* Est GFR (CKD-EPI)AfAm 4.02 Est GFR (CKD-EPI)NonAf 3.47 POC Glucometer 103 104 Random Glucose 97 Calcium 8.8 Total Bilirubin 0.4 AST 6 L ALT 7 L Alkaline Phosphatase 81 Creatine Kinase Total Protein 6.5 Albumin 3.2 L Prostate Specific Ag Home Medications Medication Instructions Recorded Amlodipine Besylate [Norvasc -] 10 mg PO ASDIR 02/24/15 Aspirin [ASA -] 81 mg PO DAILY 02/24/15 Atorvastatin Ca [Lipitor -] 40 mg PO HS 02/24/15 Furosemide [Lasix -] 40 mg PO DAILY 02/24/15 Hydralazine HCl 100 mg PO ASDIR 02/24/15 Insulin Glargine,Hum.rec.anlog 15 units SQ HS 02/24/15 [Lantus Solostar PEN (NF)] Sevelamer Carbonate [Renvela] 800 mg PO TID 02/24/15 Calcium Carbonate [Calcium] 500 mg PO TID 10/09/16 Cinacalcet HCl [Sensipar] 60 mg PO DAILY 10/09/16 Lisinopril [Prinivil -] 40 mg PO ASDIR 10/16/16 Current Medications Generic Name Dose Route Start Last Admin Trade Name Freq PRN Reason Stop Dose Admin Acetaminophen 1,000 mg 03/22/20 22:02 Ofirmev Injection - IVPB 03/23/20 22:02 Q6H PRN pain 1-3 or fever Atorvastatin Calcium 40 mg 03/23/20 22:00 Lipitor - PO HS ANU Calcium Carbonate 500 mg 03/23/20 06:00 03/23/20 17:09 Calcium Carb Oral Suspension - PO 500 mg TID ANU Administration Cinacalcet 60 mg 03/23/20 10:00 03/23/20 17:06 Sensipar - PO 60 mg DAILY ANU Administration Fentanyl 50 mcg 03/22/20 23:50 Sublimaze Injection - IVPUSH [id number] PRN PAIN-PACU ORDER X 4 DOSES ONLY Sodium Chloride 250 mls @ 3,000 mls/hr 03/23/20 10:41 Normal Saline - IV 03/24/20 10:41 PRN PRN Hypotension during Dialysis Insulin Aspart 1 vial 03/22/20 22:15 03/23/20 17:35 Novolog Vial Sliding Scale - SQ Not Given TIDAC [facility] Protocol Morphine Sulfate 4 mg 03/22/20 22:02 Morphine Sulfate IVPUSH Q4H PRN PAIN LEVEL 6-10 Ondansetron HCl 4 mg 03/22/20 23:50 Zofran Injection IVPUSH Q6H PRN NAUSEA AND/OR VOMITING Promethazine HCl 12.5 mg 03/22/20 23:50 Phenergan Injection - IVPUSH Q6H PRN NAUSEA-FOR RESCUE AFTER 15 MIN Sevelamer Carbonate 800 mg 03/23/20 08:00 03/23/20 17:09 Renvela - PO 800 mg TIDCM [facility] Administration ASSESSMENT AND PLAN: 54 M s/p Ex-lap POD #1 for bowel incarceration Inguinal hernia ESRD on HD HTN HLD CHF IDDM Plan: Gentle IVF, hold BP meds (diuretics/BB), HD put on hold renal to evaluate tomorrow Monitor VS, if continues to drop consult ICU and re-image abdomen to r/o bleed Renal following Surgery following DVT ppx: SCD for now
[2020-03-23] MEDS: ATORVASTATIN CA 40 MG TABLET (FP) PO SCH (21:32)
[2020-03-24] MEDS: ONDANSETRON 4 MG/2 ML VIAL IVPUSH PRN (06:16)
[2020-03-24] MEDS: CALCIUM CARBONATE SUSPENSION - 500 MG/5 ML ML PO SCH ×3 (06:19→22:56)
[2020-03-24] MEDS: INSULIN SLIDING SCALE (NOVOLOG) 1 VIAL SQ SCH ×3 (06:22→17:14)
[2020-03-24 09:22] LABS: BASO % 0.1 % (0-2.0); EOS % 3.6 % (0-4.5); HEMOGLOBIN 11.2 GM/dL (11.7-16.9); LYMPH % 10.5 % (8-40); MCH 31.4 pg (25.7-33.7); MCHC 32.1 g/dl (32.0-35.9); MEAN CELL VOLUME 97.8 fl (80-96); MEAN PLT VOLUME 8.1 fl (7.5-11.1); MONO % 5.5 % (3.8-10.2); NEUT % 80.3 % (42.8-82.8); PLATELET COUNT 222 K/MM3 (134-434); RBC 3.58 M/mm3 (4.00-5.60); RDW 15.5 % (11.9-15.9); WHITE BLOOD COUNT 5.2 K/mm3 (4.0-10.0)
[2020-03-24] MEDS: SEVELAMER CARBONATE 800 MG TAB (FP) PO SCH ×3 (09:34→17:15)
[2020-03-24] MEDS: CINACALCET HCL 30 MG TAB (FP) PO SCH (09:34)
--- NOTE | 2020-03-24 09:44 | PN ---
Progress Note (short form) - Note Progress Note: GENERAL SURGERY POD #2 s/p Left incarcerated hernia (inguinal) repair with mesh, repair of umbilical hernia No acute events per RN notes. Alert. Sitting up in bed. States he's been OOB and ambulating unassisted to bathroom. Passing a lot of flatus. Doesn't make much urine (dialysis patient). Denies n/v/f/c, CP, palpitations, SOB or FARRIS Last Vital Signs Temp Pulse Resp BP Pulse Ox 98.9 F 93 H 18 95/68 93 L 03/24/20 05:00 03/24/20 05:00 03/24/20 05:00 03/24/20 05:00 03/23/20 21:00 CBC 03/24/20 07:51 GEN: alert. nad Pulm: unlabored respirations on RA ABD: supraumbilical fany & LLQ fany insitu without signs of infection/erythema/hematoma. A/P: 54 y/o M w/ PMHx esrd on hd via [facility] avf (MWF), dm, htn, hld, and elevated psa a/w severe left groin pain found to have incarcerated inguinal hernia now POD 2 s/p Left incarcerated hernia (inguinal) repair with mesh, repair of umbilical hernia. - Advance to regular diet - Cont oob and ambulate - HD per Renal -Pain management PRN - Cleared for dc home from surgical service with f/u in 7 days for post-op check as outlined in DISCHARGE PLAN tab. Above plan discussed with my attending and agrees. On behalf of Dr. Burk, thank you for the opportunity to participate in your patient's care Problem List - Problems (1) Incarcerated left inguinal hernia Code(s): K40.30 - UNIL INGUINAL HERNIA, W OBST, W/O GANGR, NOT SPCF RECUR (2) Umbilical hernia Code(s): K42.9 - UMBILICAL HERNIA WITHOUT OBSTRUCTION OR GANGRENE (3) ESRD on hemodialysis Code(s): N18.6 - END STAGE RENAL DISEASE; Z99.2 - DEPENDENCE ON RENAL DIALYSIS
[2020-03-24 09:54] LABS: CALCIUM 9.1 mg/dL (8.5-10.1); POTASSIUM 4.9 mmol/L (3.5-5.1)
[2020-03-24 09:58] LABS: BLOOD UREA NITROGEN 54.8 mg/dL (7-18)
[2020-03-24 10:04] LABS: CREATININE 8.6 mg/dL (0.55-1.3)
--- NOTE | 2020-03-24 11:01 | OP ---
Operative Note - Note: Operative Date: 03/22/20 Pre-Operative Diagnosis: incarcerated left inguinal hernia and incarcerated recurrent incisional hernia Operation: repair incarcerated left inguinal hernia w/mesh and repair incarcerated recurrent incisional hernia. Findings: viable small bowel in incarcerated left inguinal hernia and preperitoneal fat and lipoma of the cord and incarcerated preperitoneal fat in 3 areas of a recurrent incisional hernia. Post-Operative Diagnosis: Same as Pre-op Surgeon: Urbano Burk Hog Scalder: Beba Dhillon Anesthesiologist/SPEECH AND HEARING [facility] DIRECTOR: Newton Garcia Anesthesia: General Specimens Removed: hernia sac Estimated Blood Loss (mls): 50 Drains & Tubes with Location: none
[2020-03-24] MEDS ORDERED: SODIUM CHLORIDE 250 ML IV PRN (13:22)
--- NOTE | 2020-03-24 13:22 | PN ---
Progress Note, Physician History of Present Illness: Pt seen and examined at bedside. He is awake and alert. He denies shortness of breath. - Current Medication List Current Medications: Active Medications Atorvastatin Calcium (Lipitor -) 40 mg PO HS [facility] Last Admin: 03/23/20 21:32 Dose: 40 mg Documented by: Calcium Carbonate (Calcium Carb Oral Suspension -) 500 mg PO TID [facility] Last Admin: 03/24/20 06:19 Dose: 500 mg Documented by: Cinacalcet (Sensipar -) 60 mg PO DAILY [facility] Last Admin: 03/24/20 09:34 Dose: 60 mg Documented by: Fentanyl (Sublimaze Injection -) 50 mcg IVPUSH [id number] PRN PRN Reason: PAIN-PACU ORDER X 4 DOSES ONLY Sodium Chloride (Normal Saline -) 250 mls @ 3,000 mls/hr IV PRN PRN PRN Reason: Hypotension during Dialysis Stop: 03/24/20 10:41 Insulin Aspart (Novolog Vial Sliding Scale -) 1 vial SQ TIDAC [facility]; Protocol Last Admin: 03/24/20 11:38 Dose: Not Given Documented by: Morphine Sulfate (Morphine Sulfate) 4 mg IVPUSH Q4H PRN PRN Reason: PAIN LEVEL 6-10 Last Admin: 03/23/20 21:29 Dose: 4 mg Documented by: Ondansetron HCl (Zofran Injection) 4 mg IVPUSH Q6H PRN PRN Reason: NAUSEA Last Admin: 03/24/20 06:16 Dose: 4 mg Documented by: Promethazine HCl (Phenergan Injection -) 12.5 mg IVPUSH Q6H PRN PRN Reason: NAUSEA-FOR RESCUE AFTER 15 MIN Sevelamer Carbonate (Renvela -) 800 mg PO TIDCM [facility] Last Admin: 03/24/20 11:41 Dose: 800 mg Documented by: - Objective Vital Signs: Vital Signs Temperature 98.9 F 03/24/20 09:00 Pulse Rate 90 03/24/20 09:00 Respiratory Rate 18 03/24/20 09:00 Blood Pressure 103/63 03/24/20 09:00 O2 Sat by Pulse Oximetry (%) 94 L 03/24/20 09:00 Constitutional: Yes: Calm Eyes: Yes: Conjunctiva Clear HENT: Yes: Atraumatic Cardiovascular: Yes: S1, S2 Respiratory: Yes: CTA Bilaterally Gastrointestinal: Yes: Soft, Other (dressing in place) Genitourinary: Yes: WNL Musculoskeletal: Yes: WNL Edema: No Neurological: Yes: Oriented Psychiatric: Yes: Oriented Labs: CBC, BMP 03/24/20 07:51 03/24/20 07:51 INR, PTT INR 1.01 (0.83-1.09) 03/22/20 13:00 Problem List - Problems (1) ESRD on hemodialysis Code(s): N18.6 - END STAGE RENAL DISEASE; Z99.2 - DEPENDENCE ON RENAL DIALYSIS (2) Incarcerated left inguinal hernia Code(s): K40.30 - UNIL INGUINAL HERNIA, W OBST, W/O GANGR, NOT SPCF RECUR Assessment/Plan Current Medications Generic Name Dose Route Start Last Admin Trade Name Freq PRN Reason Stop Dose Admin Atorvastatin Calcium 40 mg 03/23/20 22:00 03/23/20 21:32 Lipitor - PO 40 mg HS ANU Administration Calcium Carbonate 500 mg 03/23/20 06:00 03/24/20 06:19 Calcium Carb Oral Suspension - PO 500 mg TID ANU Administration Cinacalcet 60 mg 03/23/20 10:00 03/24/20 09:34 Sensipar - PO 60 mg DAILY ANU Administration Fentanyl 50 mcg 03/22/20 23:50 Sublimaze Injection - IVPUSH [id number] PRN PAIN-PACU ORDER X 4 DOSES ONLY Sodium Chloride 250 mls @ 3,000 mls/hr 03/23/20 10:41 Normal Saline - IV 03/24/20 10:41 PRN PRN Hypotension during Dialysis Insulin Aspart 1 vial 03/22/20 22:15 03/24/20 11:38 Novolog Vial Sliding Scale - SQ Not Given TIDAC [facility] Protocol Morphine Sulfate 4 mg 03/22/20 22:02 03/23/20 21:29 Morphine Sulfate IVPUSH 4 mg Q4H PRN Administration PAIN LEVEL 6-10 Ondansetron HCl 4 mg 03/24/20 05:35 03/24/20 06:16 Zofran Injection IVPUSH 4 mg Q6H PRN Administration NAUSEA Promethazine HCl 12.5 mg 03/22/20 23:50 Phenergan Injection - IVPUSH Q6H PRN NAUSEA-FOR RESCUE AFTER 15 MIN Sevelamer Carbonate 800 mg 03/23/20 08:00 03/24/20 11:41 Renvela - PO 800 mg TIDCM ANU Administration Impression 1. ESRD 2. hernia 3. htn 4. DM 5. hld 6. elevated psa not evaluated Plan - next HD tomorrow - will also dialyze on sunday to get back on schedule - pt tolerating diet - cont wound care - surgery ta diaz
--- NOTE | 2020-03-24 15:08 | SURG ---
Surgery Structural Engineering Drafting Officer Note Structural Engineering Drafting Officer: Beba Dhillon PA-C Date of Service: 03/22/20 Diagnosis: incarcerated left inguinal hernia and incarcerated recurrent incisional hernia Procedure: repair incarcerated left inguinal hernia w/mesh and repair incarcerated recurrent incisional hernia. I was present for the entirety of the operative procedure. For further detail, please refer to operative report. Visit type - Case Type Case Type: ED Admission - Emergency Emergency Visit: Yes ED Registration Date: 03/22/20 Care time: The patient presented to the Emergency Department on the above date and was hospitalized for further evaluation of their emergent condition. - New patient This patient is new to me today: Yes Date on this admission: 03/22/20
--- NOTE | 2020-03-24 16:10 | PATH ---
Surgical Pathology Report Patient Name: MAHI MCCANN Med. Rec. #: [id number] /Age/Gender: 1965 (Age: 54) / M Account: [id number] Location: [address] [place] [address]/[facility] Taken: 03/22/2020 Received: 03/23/2020 Reported: 03/24/2020 Physicians: MD LUDA Larios Specimen(s) Received HERNIA SAC Clinical History Left inguinal incarcerated hernia Final Diagnosis HERNIA SAC, EXCISION: CONSISTENT WITH HERNIA SAC. Electronically Signed Óscar Ndiaye M.D. Gross Description Received in formalin labeled "hernia sac," is a 9.0 x 8.0 x 1.4 cm aggregate of multiple felix purple, irregular portions of fibromembranous tissue and yellow, lobulated adipose tissue. Safety Technician sections are submitted in one cassette. /03/23/2020 saudi/03/23/2020
[2020-03-24] MEDS ORDERED: SODIUM CHLORIDE 250 ML IV STA (16:35)
--- NOTE | 2020-03-24 17:31 | PN ---
Physical Exam: SUBJECTIVE: Patient seen and examined at bedside this morning. No acute events overnight. Patient reported he passed flatus and had 2 bowel movements overnight. Patient reports feeling well and has no complaints. OBJECTIVE: Vital Signs Temperature 98.7 F 03/24/20 13:00 Pulse Rate 83 03/24/20 13:00 Respiratory Rate 18 03/24/20 13:00 Blood Pressure 106/63 03/24/20 13:00 O2 Sat by Pulse Oximetry (%) 94 L 03/24/20 09:00 GENERAL: The patient is awake, alert, and fully oriented, in no acute distress. HEAD: Normal with no signs of trauma. EYES: PERRLA, EOMI, sclera anicteric, conjunctiva clear. ENT: dry mucous membranes. NECK: supple. LUNGS: Breath sounds equal, clear to auscultation bilaterally HEART: Regular rate and rhythm, S1, S2 ABDOMEN: Soft, nontender, nondistended, normoactive bowel sounds. Dressing C/D/I EXTREMITIES: 2+ pulses, warm, well-perfused, no edema. NEUROLOGICAL: Cranial nerves II through XII grossly intact. Normal speech. PSYCH: Normal mood, normal affect. SKIN: Warm, dry, normal turgor. Laboratory Results - last 24 hr 03/22/20 03/23/20 03/23/20 12:50 11:45 17:33 WBC RBC Hgb Hct MCV MCH MCHC RDW Plt Count MPV Absolute Neuts (auto) Neutrophils % Lymphocytes % Monocytes % Eosinophils % Basophils % Nucleated RBC % Sodium Potassium Chloride Carbon Dioxide Anion Gap BUN Creatinine Est GFR (CKD-EPI)AfAm Est GFR (CKD-EPI)NonAf POC Glucometer 104 Random Glucose Calcium COVID-19 ([facility]) Not detected Hep C Ab Diagnostic <0.1 03/23/20 03/24/20 03/24/20 21:24 06:20 07:51 WBC 5.2 RBC 3.58 L Hgb 11.2 L Hct 35.0 L MCV 97.8 H MCH 31.4 MCHC 32.1 RDW 15.5 Plt Count 222 MPV 8.1 Absolute Neuts (auto) 4.2 Neutrophils % 80.3 Lymphocytes % 10.5 D Monocytes % 5.5 Eosinophils % 3.6 Basophils % 0.1 Nucleated RBC % 0 Sodium Potassium Chloride Carbon Dioxide Anion Gap BUN Creatinine Est GFR (CKD-EPI)AfAm Est GFR (CKD-EPI)NonAf POC Glucometer 100 105 Random Glucose Calcium COVID-19 ([facility]) Hep C Ab Diagnostic 03/24/20 03/24/20 03/24/20 07:51 11:34 16:48 WBC RBC Hgb Hct MCV MCH MCHC RDW Plt Count MPV Absolute Neuts (auto) Neutrophils % Lymphocytes % Monocytes % Eosinophils % Basophils % Nucleated RBC % Sodium 135 L Potassium 4.9 Chloride 92 L Carbon Dioxide 33 H Anion Gap 11 BUN 54.8 H Creatinine 8.6 H* Est GFR (CKD-EPI)AfAm 7.25 Est GFR (CKD-EPI)NonAf 6.26 POC Glucometer 88 110 Random Glucose 107 H Calcium 9.1 COVID-19 ([facility]) Hep C Ab Diagnostic Active Medications Generic Name Dose Route Start Last Admin Trade Name Freq PRN Reason Stop Dose Admin Atorvastatin Calcium 40 mg 03/23/20 22:00 03/23/20 21:32 Lipitor - PO 40 mg HS ANU Administration Calcium Carbonate 500 mg 03/23/20 06:00 03/24/20 14:56 Calcium Carb Oral Suspension - PO 500 mg TID ANU Administration Cinacalcet 60 mg 03/23/20 10:00 03/24/20 09:34 Sensipar - PO 60 mg DAILY ANU Administration Fentanyl 50 mcg 03/22/20 23:50 Sublimaze Injection - IVPUSH [id number] PRN PAIN-PACU ORDER X 4 DOSES ONLY Sodium Chloride 250 mls @ 3,000 mls/hr 03/23/20 10:41 Normal Saline - IV 03/24/20 10:41 PRN PRN Hypotension during Dialysis Sodium Chloride 250 mls @ 3,000 mls/hr 03/24/20 13:22 Normal Saline - IV 03/25/20 13:22 PRN PRN Hypotension during Dialysis Sodium Chloride 250 mls @ 250 mls/hr 03/24/20 16:35 03/24/20 16:38 Normal Saline - IV 03/24/20 17:34 250 mls/hr ASDIR STA Administration Insulin Aspart 1 vial 03/22/20 22:15 03/24/20 17:14 Novolog Vial Sliding Scale - SQ Not Given TIDAC [facility] Protocol Morphine Sulfate 4 mg 03/22/20 22:02 03/23/20 21:29 Morphine Sulfate IVPUSH 4 mg Q4H PRN Administration PAIN LEVEL 6-10 Ondansetron HCl 4 mg 03/24/20 05:35 03/24/20 06:16 Zofran Injection IVPUSH 4 mg Q6H PRN Administration NAUSEA Promethazine HCl 12.5 mg 03/22/20 23:50 Phenergan Injection - IVPUSH Q6H PRN NAUSEA-FOR RESCUE AFTER 15 MIN Sevelamer Carbonate 800 mg 03/23/20 08:00 03/24/20 17:15 Renvela - PO Not Given TIDCM [facility] ASSESSMENT/PLAN: Patient is a 54-year-old male with a past medical history of diabetes, renal disease on dialysis and prostate cancer presented for left-sided testicle pain going on for years increased the day before admission without any precipitating event. Admitted for incarcerated hernia requiring surgery. #Inguinal Hernia -POD 2: L inguinal hernia repair with mesh placement (03/22/2020) -pt comfortable post-op -pain control -diet resumed at noon -in the afternoon, patient started vomiting and had multiple loose BM -patient placed back on NPO, abdominal xray ordered and NGT placement #ESRD -HD tomorrow and on Sunday to get back on regular schedule -Nephrology (Dr. Keller) on board #DM -ISS, BGM ACHS #FEN -Not on any standing fluids -electrolytes wnl, routine bmp monitoring -NPO #Prophylaxis -Early ambulation -will restart Heparin 5000u sq in am #Disposition -full code -admit to med surg Visit type - Emergency Visit Emergency Visit: Yes ED Registration Date: 03/22/20 Care time: The patient presented to the Emergency Department on the above date and was hospitalized for further evaluation of their emergent condition. - New Patient This patient is new to me today: Yes Date on this admission: 03/24/20 - Critical Care Critical Care patient: No ATTENDING PHYSICIAN STATEMENT I saw and evaluated the patient. I reviewed the resident's note and discussed the case with the resident. I agree with the resident's findings and plan as documented. SUBJECTIVE: OBJECTIVE: ASSESSMENT AND PLAN:
--- NOTE | 2020-03-24 17:47 | PN ---
Teaching Attending Note Name of Resident: Zelda Davis ATTENDING PHYSICIAN STATEMENT I saw and evaluated the patient. I reviewed the resident's note and discussed the case with the resident. I agree with the resident's findings and plan as documented. SUBJECTIVE: Patient seen and examined at bedside, s/p ex-lap POD#2 for hernia incarceration, feels well, BP improved, diet advanced to regular diet. VSS. OBJECTIVE: GENERAL: Awake, alert, and fully oriented, in no acute distress. AAox3 HEENT NC/aT, mild scleral icterus, neck supple, dry MM, no JVD LUNGS: Breath sounds equal, clear to auscultation bilaterally. No wheezes, and no crackles. No accessory muscle use. HEART: Regular rate and rhythm, normal S1 and S2 without murmur, rub or gallop. ABDOMEN: Abdominal wall dressing, grossly non-tender, no guarding, decreased BS MUSCULOSKELETAL: Normal range of motion at all joints. No bony deformities or tenderness. No CVA tenderness. UPPER EXTREMITIES: 2+ pulses, warm, well-perfused. No cyanosis. No clubbing. No peripheral edema. LUE AVF w/ good thrill LOWER EXTREMITIES: 2+ pulses, warm, well-perfused. No calf tenderness. No peripheral edema. no Scrotal swelling appreciated Vital Signs - 24 hr 03/23/20 03/23/20 03/23/20 18:00 20:50 21:00 Temperature 99.0 F 98.6 F Pulse Rate 95 H 101 H Respiratory 18 18 Rate Blood Pressure 98/62 100/66 O2 Sat by Pulse 93 L Oximetry (%) 03/24/20 03/24/20 03/24/20 01:42 05:00 09:00 Temperature 99.2 F 98.9 F 98.9 F Pulse Rate 94 H 93 H 90 Respiratory 18 18 18 Rate Blood Pressure 86/43 L 95/68 103/63 O2 Sat by Pulse 94 L Oximetry (%) 03/24/20 03/24/20 13:00 17:29 Temperature 98.7 F Pulse Rate 83 80 Respiratory 18 18 Rate Blood Pressure 106/63 106/65 O2 Sat by Pulse Oximetry (%) Laboratory Results - last 24 hr 03/22/20 03/23/20 03/23/20 12:50 11:45 21:24 WBC RBC Hgb Hct MCV MCH MCHC RDW Plt Count MPV Absolute Neuts (auto) Neutrophils % Lymphocytes % Monocytes % Eosinophils % Basophils % Nucleated RBC % Sodium Potassium Chloride Carbon Dioxide Anion Gap BUN Creatinine Est GFR (CKD-EPI)AfAm Est GFR (CKD-EPI)NonAf POC Glucometer 100 Random Glucose Calcium COVID-19 ([facility]) Not detected Hep C Ab Diagnostic <0.1 03/24/20 03/24/20 03/24/20 06:20 07:51 07:51 WBC 5.2 RBC 3.58 L Hgb 11.2 L Hct 35.0 L MCV 97.8 H MCH 31.4 MCHC 32.1 RDW 15.5 Plt Count 222 MPV 8.1 Absolute Neuts (auto) 4.2 Neutrophils % 80.3 Lymphocytes % 10.5 D Monocytes % 5.5 Eosinophils % 3.6 Basophils % 0.1 Nucleated RBC % 0 Sodium 135 L Potassium 4.9 Chloride 92 L Carbon Dioxide 33 H Anion Gap 11 BUN 54.8 H Creatinine 8.6 H* Est GFR (CKD-EPI)AfAm 7.25 Est GFR (CKD-EPI)NonAf 6.26 POC Glucometer 105 Random Glucose 107 H Calcium 9.1 COVID-19 ([facility]) Hep C Ab Diagnostic 03/24/20 03/24/20 11:34 16:48 WBC RBC Hgb Hct MCV MCH MCHC RDW Plt Count MPV Absolute Neuts (auto) Neutrophils % Lymphocytes % Monocytes % Eosinophils % Basophils % Nucleated RBC % Sodium Potassium Chloride Carbon Dioxide Anion Gap BUN Creatinine Est GFR (CKD-EPI)AfAm Est GFR (CKD-EPI)NonAf POC Glucometer 88 110 Random Glucose Calcium COVID-19 ([facility]) Hep C Ab Diagnostic Current Medications Generic Name Dose Route Start Last Admin Trade Name Freq PRN Reason Stop Dose Admin Atorvastatin Calcium 40 mg 03/23/20 22:00 03/23/20 21:32 Lipitor - PO 40 mg HS ANU Administration Calcium Carbonate 500 mg 03/23/20 06:00 03/24/20 14:56 Calcium Carb Oral Suspension - PO 500 mg TID ANU Administration Cinacalcet 60 mg 03/23/20 10:00 03/24/20 09:34 Sensipar - PO 60 mg DAILY ANU Administration Fentanyl 50 mcg 03/22/20 23:50 Sublimaze Injection - IVPUSH [id number] PRN PAIN-PACU ORDER X 4 DOSES ONLY Heparin Sodium (Porcine) 5,000 unit 03/25/20 10:00 Heparin - SQ BID ANU Sodium Chloride 250 mls @ 3,000 mls/hr 03/23/20 10:41 Normal Saline - IV 03/24/20 10:41 PRN PRN Hypotension during Dialysis Sodium Chloride 250 mls @ 3,000 mls/hr 03/24/20 13:22 Normal Saline - IV 03/25/20 13:22 PRN PRN Hypotension during Dialysis Insulin Aspart 1 vial 03/22/20 22:15 03/24/20 17:14 Novolog Vial Sliding Scale - SQ Not Given [facility]AC [facility] Protocol Morphine Sulfate 4 mg 03/22/20 22:02 03/23/20 21:29 Morphine Sulfate IVPUSH 4 mg Q4H PRN Administration PAIN LEVEL 6-10 Ondansetron HCl 4 mg 03/24/20 05:35 03/24/20 06:16 Zofran Injection IVPUSH 4 mg Q6H PRN Administration NAUSEA Promethazine HCl 12.5 mg 03/22/20 23:50 Phenergan Injection - IVPUSH Q6H PRN NAUSEA-FOR RESCUE AFTER 15 MIN Sevelamer Carbonate 800 mg 03/23/20 08:00 03/24/20 17:15 Renvela - PO Not Given [facility] Current Medications Generic Name Dose Route Start Last Admin Trade Name Freq PRN Reason Stop Dose Admin Atorvastatin Calcium 40 mg 03/23/20 22:00 03/23/20 21:32 Lipitor - PO 40 mg HS ANU Administration Calcium Carbonate 500 mg 03/23/20 06:00 03/24/20 14:56 Calcium Carb Oral Suspension - PO 500 mg TID ANU Administration Cinacalcet 60 mg 03/23/20 10:00 03/24/20 09:34 Sensipar - PO 60 mg DAILY ANU Administration Fentanyl 50 mcg 03/22/20 23:50 Sublimaze Injection - IVPUSH [id number] PRN PAIN-PACU ORDER X 4 DOSES ONLY Heparin Sodium (Porcine) 5,000 unit 03/25/20 10:00 Heparin - SQ BID ANU Sodium Chloride 250 mls @ 3,000 mls/hr 03/23/20 10:41 Normal Saline - IV 03/24/20 10:41 PRN PRN Hypotension during Dialysis Sodium Chloride 250 mls @ 3,000 mls/hr 07/01/20 13:22 Normal Saline - IV 03/25/20 13:22 PRN PRN Hypotension during Dialysis Insulin Aspart 1 vial 03/22/20 22:15 03/24/20 17:14 Novolog Vial Sliding Scale - SQ Not Given [facility] Protocol Morphine Sulfate 4 mg 03/22/20 22:02 03/23/20 21:29 Morphine Sulfate IVPUSH 4 mg Q4H PRN Administration PAIN LEVEL 6-10 Ondansetron HCl 4 mg 03/24/20 05:35 03/24/20 06:16 Zofran Injection IVPUSH 4 mg Q6H PRN Administration NAUSEA Promethazine HCl 12.5 mg 03/22/20 23:50 Phenergan Injection - IVPUSH Q6H PRN NAUSEA-FOR RESCUE AFTER 15 MIN Sevelamer Carbonate 800 mg 03/23/20 08:00 03/24/20 17:15 Renvela - PO Not Given TIDCM [facility] ASSESSMENT AND PLAN: 54 M s/p Ex-lap POD #2 for bowel incarceration Inguinal hernia ESRD on HD HTN HLD CHF IDDM Plan: HD as scheduled per renal Cont. wound care may follow up in surgery clinic, advance diet per Surgery recs Renal following Surgery following DVT ppx: SCD for now DC in AM
[2020-03-24 21:11] LABS: HEP B CORE AB, TOT Negative (Negative)
[2020-03-24] MEDS ORDERED: HEPARIN NA (PORCINE) 5,000 UNITS/ML 1ML VIAL SQ SCH (22:00)
[2020-03-24] MEDS: ATORVASTATIN CA 40 MG TABLET (FP) PO SCH (22:33)
[2020-03-25] MEDS: CALCIUM CARBONATE SUSPENSION - 500 MG/5 ML ML PO SCH ×3 (06:12→21:26)
[2020-03-25] MEDS: INSULIN SLIDING SCALE (NOVOLOG) 1 VIAL SQ SCH ×3 (06:17→17:28)
[2020-03-25 08:51] LABS: HEMATOCRIT 33.4 % (35.4-49); HEMOGLOBIN 10.9 GM/dL (11.7-16.9); MCH 31.7 pg (25.7-33.7); MCHC 32.6 g/dl (32.0-35.9); MEAN CELL VOLUME 97.4 fl (80-96); MEAN PLT VOLUME 8.1 fl (7.5-11.1); PLATELET COUNT 236 K/MM3 (134-434); RBC 3.43 M/mm3 (4.00-5.60); RDW 15.4 % (11.9-15.9); WHITE BLOOD COUNT 8.3 K/mm3 (4.0-10.0)
[2020-03-25] MEDS ORDERED: PNEUMOC 13-VAL CONJ-DIP CRM/PF 0.5 ML DISP.SYRIN IM ONE (08:51)
--- NOTE | 2020-03-25 09:04 | PN ---
Progress Note (short form) - Note Progress Note: GENERAL SURGERY POD #3 s/p Left incarcerated hernia (inguinal) repair with mesh, repair of umbilical hernia Yesterday after I saw patient, was started on regular diet. Soon after developed n/v. He didn't want an ngt as he felt better after vomiting. Recommended that an ngt be inserted should it resume. He went for STAT AXR which showed non-obstructive bowel gas pattern...ileus. Currently on his way to HD. He looks fine. States he feels fine. No more episodes of n/v. States he's been OOB and ambulating unassisted to bathroom. Doesn't make much urine (dialysis patient). Continues to pass flatus. Denies n/v/f/c, CP, palpitations, SOB or FARRIS Last Vital Signs Temp Pulse Resp BP Pulse Ox 98.2 F 73 18 109/85 95 03/25/20 07:45 03/25/20 08:00 03/25/20 08:00 03/25/20 08:00 03/24/20 21:00 CBC 03/25/20 08:00 GEN: alert. nad Pulm: unlabored respirations on RA ABD: supraumbilical fany & LLQ fany insitu without signs of infection/erythema/hematoma. + bowel sounds in all quadrants A/P: 54 y/o M w/ PMHx esrd on hd via [facility] avf (MWF), dm, htn, hld, and elevated psa a/w severe left groin pain found to have incarcerated inguinal hernia now P OD 3 s/p Left incarcerated hernia (inguinal) repair with mesh, repair of umbilical hernia. Developed some n/v late afternoon after eating. Reverted back to NPO and AXR showed NOBGP. - Attempt clears today after HD - Cont oob and ambulate - HD per Renal - Pain management PRN Above plan discussed with my attending and agrees. Problem List - Problems (1) Incarcerated left inguinal hernia Code(s): K40.30 - UNIL INGUINAL HERNIA, W OBST, W/O GANGR, NOT SPCF RECUR (2) Umbilical hernia Code(s): K42.9 - UMBILICAL HERNIA WITHOUT OBSTRUCTION OR GANGRENE (3) ESRD on hemodialysis Code(s): N18.6 - END STAGE RENAL DISEASE; Z99.2 - DEPENDENCE ON RENAL DIALYSIS
[2020-03-25] MEDS ORDERED: ACETAMINOPHEN 1000 MG/100 ML VIAL (NON FORMULARY) IVPB PRN (09:18)
[2020-03-25 09:29] LABS: BLOOD UREA NITROGEN 71.4 mg/dL (7-18); CALCIUM 9.1 mg/dL (8.5-10.1); POTASSIUM 3.8 mmol/L (3.5-5.1)
[2020-03-25 09:40] LABS: CREATININE 10.4 mg/dL (0.55-1.3)
[2020-03-25] MEDS ORDERED: HEPARIN NA (PORCINE) 5,000 UNITS/ML 1ML VIAL SQ SCH (10:00)
[2020-03-25] MEDS: SEVELAMER CARBONATE 800 MG TAB (FP) PO SCH ×3 (10:10→17:29)
--- NOTE | 2020-03-25 10:35 | OP ---
DATE OF OPERATION: 03/22/2020 PREOPERATIVE DIAGNOSIS: Incarcerated left inguinal hernia and incarcerated recurrent incisional hernia. PROCEDURE: Repair of incarcerated left inguinal hernia with Parietex ProGrip mesh and repair of incarcerated recurrent incisional hernia. SURGEON: Urbano Burk MD TEST ENG: Beba Dhillon PA-C ANESTHESIA: General. OPERATIVE FINDINGS: There was viable small bowel in an incarcerated left inguinal hernia and preperitoneal fat and a lipoma of the cord, and incarcerated preperitoneal fat in 3 separate defects of the previous incisional hernia repair with evidence of previous suture material and no mesh. The left testicle was viable, and the rest of the findings were unremarkable. DESCRIPTION OF PROCEDURE: The patient was placed on the operating room table in supine position. After the induction of general anesthesia, the patient's abdomen from the umbilicus down to the genitalia was prepped with ChloraPrep and the patient draped in a sterile manner. A timeout was taken, and a transverse left groin incision was made and taken down through skin, subcutaneous tissue, and Scarp's fascia. The external oblique fascia was identified and divided proximally in the direction of its fibers and distally to the external ring. At this time, the hernia was reduced and the indirect sac was identified. The cord structures and nerve and sac were elevated to the level of the pubic tubercle and a [place] drain placed around them for retraction and identification purposes. The indirect sac was dissected up to the internal ring, where it was opened and some bloody peritoneal fluid was identified. The sigmoid colon was identified in the base of the sac and was viable, and several loops of small bowel were mobilized and brought out through the incision and were viable as well. High ligation of the sac was carried out and the base of the sac ligated with 2-0 Vicryl. Redundant sac was excised and sent for pathological examination. Next, the floor of the inguinal canal was repaired by fastening a piece of Parietex ProGrip mesh into the defect and anchoring it at the pubic tubercle, shelving edge, and conjoint tendon, respectively, with interrupted 2-0 Prolene. A keyhole was created for the cord structures and the tails of the mesh brought above the level of the internal ring, recreating the shutter mechanism and anchoring the mesh with interrupted 2-0 Prolene. Hemostasis was checked for and noted to be good, and then the wound was copiously irrigated with saline solution. The cord structures and nerve were returned to their normal anatomic position and the external oblique fascia closed over them, recreating the external ring with continuous 2-0 Vicryl. Junito's fascia was reapproximated with interrupted 2-0 Vicryl and the skin edges with surgical fany. Next, attention was turned to the midline above the umbilicus where there was a previous scar, an incision made with a scalpel and taken down through skin and subcutaneous tissue. Three separate hernia sacs were identified, which were opened and found to contain chronically incarcerated preperitoneal fat and/or omentum, all of which was excised. Each defect measured approximately 1 cm in greatest dimension, and these defects were repaired using 0 Prolene [id number] sutures. The operative field was then infiltrated with 0.5% Marcaine, as was the operative field in the groin, and the wound copiously irrigated with sterile saline. Hemostasis was secured with electrocautery and then incision closed with interrupted 2-0 Vicryl for the deep scar tissue that was over the hernia sacs, and then the skin incision closed with surgical fany. Dry sterile dressings were placed on each incision and the procedure terminated at this point. At the completion of the case, the left testicle was verified as in the left hemiscrotum, and the patient was transferred to the postanesthesia care unit in stable condition, awake and alert. ESTIMATED BLOOD LOSS: 50 mL. REPLACEMENTS: Crystalloid. DRAINS: None. SPECIMEN: Hernia sac to pathology. I, Urbano Burk, was physically present in the operating room from the time the patient was placed on the operating table until he was transferred to the postanesthesia care unit in my accompaniment. MD DEBI Taylor/[id number]
[2020-03-25] MEDS: CINACALCET HCL 30 MG TAB (FP) PO SCH (12:10)
[2020-03-25] MEDS ORDERED: PT OWN MED DRAWER 7, Y5N ONE ×2 (14:41→21:23)
--- NOTE | 2020-03-25 15:42 | PN ---
Physical Exam: SUBJECTIVE: Patient seen and examined at bedside this morning. Patient had 2 loose bowel movements overnight. None reported yet this morning, No vomiting. Patient otherwise reports feeling well and has no complaints. OBJECTIVE: Vital Signs Temperature 97.8 F 03/25/20 14:00 Pulse Rate 82 03/25/20 14:00 Respiratory Rate 18 03/25/20 14:00 Blood Pressure 121/59 L 03/25/20 14:00 O2 Sat by Pulse Oximetry (%) 96 03/25/20 09:00 GENERAL: The patient is awake, alert, and fully oriented, in no acute distress. HEAD: Normal with no signs of trauma. EYES: PERRLA, EOMI, sclera anicteric, conjunctiva clear. ENT: dry mucous membranes. NECK: supple. LUNGS: Breath sounds equal, clear to auscultation bilaterally HEART: Regular rate and rhythm, S1, S2 ABDOMEN: Soft, nontender, nondistended, normoactive bowel sounds. Dressing C/D/I EXTREMITIES: 2+ pulses, warm, well-perfused, no edema. NEUROLOGICAL: Cranial nerves II through XII grossly intact. Normal speech. PSYCH: Normal mood, normal affect. SKIN: Warm, dry, normal turgor. Laboratory Results - last 24 hr 03/23/20 03/24/20 03/24/20 11:45 16:48 23:04 WBC RBC Hgb Hct MCV MCH MCHC RDW Plt Count MPV Sodium Potassium Chloride Carbon Dioxide Anion Gap BUN Creatinine Est GFR (CKD-EPI)AfAm Est GFR (CKD-EPI)NonAf POC Glucometer 110 93 Random Glucose Calcium Hep A IgM Ab Confirm Negative Hepatitis A Ab Total Negative Hep Bs Antigen Negative Hep Bs Antibody Reactive Hep B Core Total Ab Negative Hep B Core IgM Ab Negative Hepatitis Be Antibody Negative Hepatitis Be Antigen Negative 03/25/20 03/25/20 03/25/20 06:13 08:00 08:00 WBC 8.3 RBC 3.43 L Hgb 10.9 L Hct 33.4 L MCV 97.4 H MCH 31.7 MCHC 32.6 RDW 15.4 Plt Count 236 MPV 8.1 Sodium 136 Potassium 3.8 Chloride 91 L Carbon Dioxide 32 Anion Gap 13 BUN 71.4 H Creatinine 10.4 H* Est GFR (CKD-EPI)AfAm 5.76 Est GFR (CKD-EPI)NonAf 4.97 POC Glucometer 71 Random Glucose 73 L Calcium 9.1 Hep A IgM Ab Confirm Hepatitis A Ab Total Hep Bs Antigen Hep Bs Antibody Hep B Core Total Ab Hep B Core IgM Ab Hepatitis Be Antibody Hepatitis Be Antigen 03/25/20 03/25/20 12:06 12:57 WBC RBC Hgb Hct MCV MCH MCHC RDW Plt Count MPV Sodium Potassium Chloride Carbon Dioxide Anion Gap BUN Creatinine Est GFR (CKD-EPI)AfAm Est GFR (CKD-EPI)NonAf POC Glucometer 69 74 Random Glucose Calcium Hep A IgM Ab Confirm Hepatitis A Ab Total Hep Bs Antigen Hep Bs Antibody Hep B Core Total Ab Hep B Core IgM Ab Hepatitis Be Antibody Hepatitis Be Antigen Active Medications Generic Name Dose Route Start Last Admin Trade Name Freq PRN Reason Stop Dose Admin Acetaminophen 1,000 mg 03/25/20 09:18 Ofirmev Injection - IVPB 03/26/20 09:18 Q6H PRN PAIN LEVEL 6-10 Atorvastatin Calcium 40 mg 03/23/20 22:00 03/24/20 22:33 Lipitor - PO 40 mg HS ANU Administration Calcium Carbonate 500 mg 03/23/20 06:00 03/25/20 15:27 Calcium Carb Oral Suspension - PO 500 mg TID ANU Administration Cinacalcet 60 mg 03/23/20 10:00 03/25/20 12:10 Sensipar - PO 60 mg DAILY ANU Administration Heparin Sodium (Porcine) 5,000 unit 03/25/20 10:00 03/25/20 12:14 Heparin - SQ Not Given BID ANU Sodium Chloride 250 mls @ 3,000 mls/hr 03/23/20 10:41 Normal Saline - IV 03/24/20 10:41 PRN PRN Hypotension during Dialysis Sodium Chloride 250 mls @ 3,000 mls/hr 03/24/20 13:22 Normal Saline - IV 03/25/20 13:22 PRN PRN Hypotension during Dialysis Insulin Aspart 1 vial 03/22/20 22:15 03/25/20 12:11 Novolog Vial Sliding Scale - SQ Not Given TIDAC [facility] Protocol Ondansetron HCl 4 mg 03/24/20 05:35 03/24/20 06:16 Zofran Injection IVPUSH 4 mg Q6H PRN Administration NAUSEA Promethazine HCl 12.5 mg 03/22/20 23:50 Phenergan Injection - IVPUSH Q6H PRN NAUSEA-FOR RESCUE AFTER 15 MIN Sevelamer Carbonate 800 mg 03/23/20 08:00 03/25/20 12:11 Renvela - PO 800 mg TIDCM ANU Administration ASSESSMENT/PLAN: Patient is a 54-year-old male with a past medical history of diabetes, renal disease on dialysis and prostate cancer presented for left-sided testicle pain going on for years increased the day before admission without any precipitating event. Admitted for incarcerated hernia requiring surgery. #Inguinal Hernia -POD 3: L inguinal hernia repair with mesh placement (03/22/2020) -pt comfortable post-op -pain control -AXR yesterday showed mild ileus -will trial again on clear liquid diet -patient defer NGT placement at this time -Surgery on board. Appreciated recs. #ESRD -HD today, and again tomorrow to get back on regular schedule -Nephrology (Dr. Keller) on board #DM -ISS, BGM ACHS #FEN -Not on any standing fluids -electrolytes wnl, routine bmp monitoring -Clear liquid diet #Prophylaxis -Early ambulation -Patient refuses Heparin ppx at this time #Disposition -full code -admit to med surg Visit type - Emergency Visit Emergency Visit: Yes ED Registration Date: 03/22/20 Care time: The patient presented to the Emergency Department on the above date and was hospitalized for further evaluation of their emergent condition. - New Patient This patient is new to me today: No - Critical Care Critical Care patient: No ATTENDING PHYSICIAN STATEMENT I saw and evaluated the patient. I reviewed the resident's note and discussed the case with the resident. I agree with the resident's findings and plan as documented. SUBJECTIVE: OBJECTIVE: ASSESSMENT AND PLAN:
--- NOTE | 2020-03-25 16:10 | PN ---
Teaching Attending Note Name of Resident: Zelda Davis ATTENDING PHYSICIAN STATEMENT I saw and evaluated the patient. I reviewed the resident's note and discussed the case with the resident. I agree with the resident's findings and plan as documented. SUBJECTIVE: Patient seen and examined at bedside, s/p ex-lap POD#3 for hernia incarceration, vomited after regular food, tolerating clears however, will likely need to continue, DC opioids due to suspected ileus. VSS. OBJECTIVE: GENERAL: Awake, alert, and fully oriented, in no acute distress. AAox3 HEENT NC/aT, mild scleral icterus, neck supple, dry MM, no JVD LUNGS: Breath sounds equal, clear to auscultation bilaterally. No wheezes, and no crackles. No accessory muscle use. HEART: Regular rate and rhythm, normal S1 and S2 without murmur, rub or gallop. ABDOMEN: Abdominal wall dressing, grossly non-tender, no guarding, decreased BS MUSCULOSKELETAL: Normal range of motion at all joints. No bony deformities or tenderness. No CVA tenderness. UPPER EXTREMITIES: 2+ pulses, warm, well-perfused. No cyanosis. No clubbing. No peripheral edema. LUE AVF w/ good thrill LOWER EXTREMITIES: 2+ pulses, warm, well-perfused. No calf tenderness. No peripheral edema. no Scrotal swelling appreciated Vital Signs - 24 hr 03/24/20 03/24/20 03/24/20 17:29 18:13 20:06 Temperature Pulse Rate 80 93 H 86 Respiratory 18 18 Rate Blood Pressure 106/65 98/57 L 109/64 O2 Sat by Pulse Oximetry (%) 03/24/20 03/24/20 03/25/20 21:00 22:43 01:52 Temperature 98.6 F 99 F Pulse Rate 80 87 Respiratory 18 18 18 Rate Blood Pressure 109/63 93/49 L O2 Sat by Pulse 95 Oximetry (%) 03/25/20 03/25/20 03/25/20 05:00 07:45 08:00 Temperature 98.5 F 98.2 F Pulse Rate 78 81 73 Respiratory 18 18 18 Rate Blood Pressure 104/70 116/55 L 109/85 O2 Sat by Pulse Oximetry (%) 03/25/20 03/25/20 03/25/20 08:30 09:00 09:30 Temperature Pulse Rate 72 72 74 Respiratory 18 18 18 Rate Blood Pressure 90/58 L 64/50 L 94/59 L O2 Sat by Pulse Oximetry (%) 03/25/20 03/25/20 03/25/20 10:00 10:30 11:00 Temperature Pulse Rate 68 69 70 Respiratory 18 18 18 Rate Blood Pressure 102/62 116/60 108/53 L O2 Sat by Pulse Oximetry (%) 03/25/20 03/25/20 03/25/20 11:15 11:48 14:00 Temperature 97.8 F Pulse Rate 72 66 82 Respiratory 18 18 18 Rate Blood Pressure 110/57 L 123/78 121/59 L O2 Sat by Pulse Oximetry (%) Laboratory Results - last 24 hr 03/23/20 03/24/20 03/24/20 11:45 16:48 23:04 WBC RBC Hgb Hct MCV MCH MCHC RDW Plt Count MPV Sodium Potassium Chloride Carbon Dioxide Anion Gap BUN Creatinine Est GFR (CKD-EPI)AfAm Est GFR (CKD-EPI)NonAf POC Glucometer 110 93 Random Glucose Calcium Hep A IgM Ab Confirm Negative Hepatitis A Ab Total Negative Hep Bs Antigen Negative Hep Bs Antibody Reactive Hep B Core Total Ab Negative Hep B Core IgM Ab Negative Hepatitis Be Antibody Negative Hepatitis Be Antigen Negative 03/25/20 03/25/20 03/25/20 06:13 08:00 08:00 WBC 8.3 RBC 3.43 L Hgb 10.9 L Hct 33.4 L MCV 97.4 H MCH 31.7 MCHC 32.6 RDW 15.4 Plt Count 236 MPV 8.1 Sodium 136 Potassium 3.8 Chloride 91 L Carbon Dioxide 32 Anion Gap 13 BUN 71.4 H Creatinine 10.4 H* Est GFR (CKD-EPI)AfAm 5.76 Est GFR (CKD-EPI)NonAf 4.97 POC Glucometer 71 Random Glucose 73 L Calcium 9.1 Hep A IgM Ab Confirm Hepatitis A Ab Total Hep Bs Antigen Hep Bs Antibody Hep B Core Total Ab Hep B Core IgM Ab Hepatitis Be Antibody Hepatitis Be Antigen 03/25/20 03/25/20 12:06 12:57 WBC RBC Hgb Hct MCV MCH MCHC RDW Plt Count MPV Sodium Potassium Chloride Carbon Dioxide Anion Gap BUN Creatinine Est GFR (CKD-EPI)AfAm Est GFR (CKD-EPI)NonAf POC Glucometer 69 74 Random Glucose Calcium Hep A IgM Ab Confirm Hepatitis A Ab Total Hep Bs Antigen Hep Bs Antibody Hep B Core Total Ab Hep B Core IgM Ab Hepatitis Be Antibody Hepatitis Be Antigen Home Medications Medication Instructions Recorded Amlodipine Besylate [Norvasc -] 10 mg PO ASDIR 02/24/15 Aspirin [ASA -] 81 mg PO DAILY 02/24/15 Atorvastatin Ca [Lipitor] 40 mg PO HS 02/24/15 Furosemide [Lasix -] 40 mg PO DAILY 02/24/15 Hydralazine HCl 100 mg PO ASDIR 02/24/15 Insulin Glargine,Hum.rec.anlog 15 units SQ HS 02/24/15 [Lantus Solostar PEN -] Sevelamer Carbonate [Renvela -] 800 mg PO TID 02/24/15 Calcium Carbonate [Calcium] 500 mg PO TID 10/09/16 Cinacalcet HCl [Sensipar] 60 mg PO DAILY 10/09/16 Lisinopril [Prinivil -] 40 mg PO ASDIR 10/16/16 oxyCODONE HCL [Roxicodone -] 5 mg PO Q4H PRN #20 tablet MDD 6 03/24/20 Current Medications Generic Name Dose Route Start Last Admin Trade Name Freq PRN Reason Stop Dose Admin Acetaminophen 1,000 mg 03/25/20 09:18 Ofirmev Injection - IVPB 03/26/20 09:18 Q6H PRN PAIN LEVEL 6-10 Atorvastatin Calcium 40 mg 03/23/20 22:00 03/24/20 22:33 Lipitor - PO 40 mg HS ANU Administration Calcium Carbonate 500 mg 03/23/20 06:00 03/25/20 15:27 Calcium Carb Oral Suspension - PO 500 mg TID ANU Administration Cinacalcet 60 mg 03/23/20 10:00 03/25/20 12:10 Sensipar - PO 60 mg DAILY ANU Administration Heparin Sodium (Porcine) 5,000 unit 03/25/20 10:00 03/25/20 12:14 Heparin - SQ Not Given BID ANU Sodium Chloride 250 mls @ 3,000 mls/hr 03/23/20 10:41 Normal Saline - IV 03/24/20 10:41 PRN PRN Hypotension during Dialysis Sodium Chloride 250 mls @ 3,000 mls/hr 03/24/20 13:22 Normal Saline - IV 03/25/20 13:22 PRN PRN Hypotension during Dialysis Insulin Aspart 1 vial 03/22/20 22:15 03/25/20 12:11 Novolog Vial Sliding Scale - SQ Not Given TIDAC [facility] Protocol Ondansetron HCl 4 mg 03/24/20 05:35 03/24/20 06:16 Zofran Injection IVPUSH 4 mg Q6H PRN Administration NAUSEA Promethazine HCl 12.5 mg 03/22/20 23:50 Phenergan Injection - IVPUSH Q6H PRN NAUSEA-FOR RESCUE AFTER 15 MIN Sevelamer Carbonate 800 mg 03/23/20 08:00 03/25/20 12:11 Renvela - PO 800 mg TIDCM ANU Administration ASSESSMENT AND PLAN: 54 M s/p Ex-lap POD #3 for bowel incarceration Inguinal hernia ESRD on HD HTN HLD CHF IDDM Plan: HD as scheduled per renal Clear diet as tolerated Cont. wound care may follow up in surgery clinic Renal following Surgery following DVT ppx: SCD for now
[2020-03-25] MEDS: ONDANSETRON 4 MG/2 ML VIAL IVPUSH PRN (16:22)
[2020-03-25] MEDS ORDERED: SODIUM CHLORIDE 250 ML IV PRN (19:27)
--- NOTE | 2020-03-25 19:27 | PN ---
Progress Note, Physician History of Present Illness: Pt seen and examined at bedside. He is awake and alert. He did vomit yesterday and he is back on clears. - Current Medication List Current Medications: Active Medications Acetaminophen (Ofirmev Injection -) 1,000 mg IVPB Q6H PRN PRN Reason: PAIN LEVEL 6-10 Stop: 03/26/20 09:18 Atorvastatin Calcium (Lipitor -) 40 mg PO HS [facility] Last Admin: 03/24/20 22:33 Dose: 40 mg Documented by: Calcium Carbonate (Calcium Carb Oral Suspension -) 500 mg PO TID [facility] Last Admin: 03/25/20 15:27 Dose: 500 mg Documented by: Cinacalcet (Sensipar -) 60 mg PO DAILY [facility] Last Admin: 03/25/20 12:10 Dose: 60 mg Documented by: Sodium Chloride (Normal Saline -) 250 mls @ 3,000 mls/hr IV PRN PRN PRN Reason: Hypotension during Dialysis Stop: 03/24/20 10:41 Sodium Chloride (Normal Saline -) 250 mls @ 3,000 mls/hr IV PRN PRN PRN Reason: Hypotension during Dialysis Stop: 03/25/20 13:22 Insulin Aspart (Novolog Vial Sliding Scale -) 1 vial SQ TIDAC [facility]; Protocol Last Admin: 03/25/20 17:28 Dose: Not Given Documented by: Ondansetron HCl (Zofran Injection) 4 mg IVPUSH Q6H PRN PRN Reason: NAUSEA Last Admin: 03/25/20 16:22 Dose: 4 mg Documented by: Promethazine HCl (Phenergan Injection -) 12.5 mg IVPUSH Q6H PRN PRN Reason: NAUSEA-FOR RESCUE AFTER 15 MIN Sevelamer Carbonate (Renvela -) 800 mg PO TIDCM [facility] Last Admin: 03/25/20 17:29 Dose: 800 mg Documented by: - Objective Vital Signs: Vital Signs Temperature 98.0 F 03/25/20 18:00 Pulse Rate 76 03/25/20 18:00 Respiratory Rate 18 03/25/20 18:00 Blood Pressure 120/56 L 03/25/20 18:00 O2 Sat by Pulse Oximetry (%) 96 03/25/20 09:00 Constitutional: Yes: Calm Eyes: Yes: Conjunctiva Clear HENT: Yes: Atraumatic Neck: Yes: Supple Cardiovascular: Yes: S1, S2 Respiratory: Yes: CTA Bilaterally Gastrointestinal: Yes: WNL Genitourinary: Yes: WNL Musculoskeletal: Yes: WNL Edema: No Wound/Incision: Yes: Open to air Neurological: Yes: Oriented Psychiatric: Yes: Oriented Labs: CBC, BMP 03/25/20 08:00 03/25/20 08:00 INR, PTT INR 1.01 (0.83-1.09) 03/22/20 13:00 Problem List - Problems (1) ESRD on hemodialysis Code(s): N18.6 - END STAGE RENAL DISEASE; Z99.2 - DEPENDENCE ON RENAL DIALYSIS (2) Incarcerated left inguinal hernia Code(s): K40.30 - UNIL INGUINAL HERNIA, W OBST, W/O GANGR, NOT SPCF RECUR Assessment/Plan Current Medications Generic Name Dose Route Start Last Admin Trade Name Freq PRN Reason Stop Dose Admin Acetaminophen 1,000 mg 03/25/20 09:18 Ofirmev Injection - IVPB 03/26/20 09:18 Q6H PRN PAIN LEVEL 6-10 Atorvastatin Calcium 40 mg 03/23/20 22:00 03/24/20 22:33 Lipitor - PO 40 mg HS ANU Administration Calcium Carbonate 500 mg 03/23/20 06:00 03/25/20 15:27 Calcium Carb Oral Suspension - PO 500 mg TID ANU Administration Cinacalcet 60 mg 03/23/20 10:00 03/25/20 12:10 Sensipar - PO 60 mg DAILY ANU Administration Sodium Chloride 250 mls @ 3,000 mls/hr 03/23/20 10:41 Normal Saline - IV 03/24/20 10:41 PRN PRN Hypotension during Dialysis Sodium Chloride 250 mls @ 3,000 mls/hr 03/24/20 13:22 Normal Saline - IV 03/25/20 13:22 PRN PRN Hypotension during Dialysis Insulin Aspart 1 vial 03/22/20 22:15 03/25/20 17:28 Novolog Vial Sliding Scale - SQ Not Given TIDAC ANU Protocol Ondansetron HCl 4 mg 03/24/20 05:35 03/25/20 16:22 Zofran Injection IVPUSH 4 mg Q6H PRN Administration NAUSEA Promethazine HCl 12.5 mg 06/29/20 23:50 Phenergan Injection - IVPUSH Q6H PRN NAUSEA-FOR RESCUE AFTER 15 MIN Sevelamer Carbonate 800 mg 03/23/20 08:00 03/25/20 17:29 Renvela - PO 800 mg TIDCM ANU Administration Impression 1. ESRD 2. hernia 3. htn 4. DM 5. hld 6. elevated psa not evaluated Plan - HD today - will arrange for HD again tomorrow to get him back on schedule - cont clear - advance diet per surgery recs - cont wound care - surgery follow up
[2020-03-25] MEDS: ATORVASTATIN CA 40 MG TABLET (FP) PO SCH (21:27)
[2020-03-26] MEDS ORDERED: PT OWN MED DRAWER 7, Y5N ONE ×3 (05:45→21:02)
[2020-03-26] MEDS: CALCIUM CARBONATE SUSPENSION - 500 MG/5 ML ML PO SCH ×3 (05:57→21:09)
[2020-03-26] MEDS: INSULIN SLIDING SCALE (NOVOLOG) 1 VIAL SQ SCH ×3 (06:04→17:32)
[2020-03-26 08:59] LABS: HEMATOCRIT 33.9 % (35.4-49); HEMOGLOBIN 10.8 GM/dL (11.7-16.9); MCH 30.9 pg (25.7-33.7); MCHC 31.9 g/dl (32.0-35.9); MEAN CELL VOLUME 97.1 fl (80-96); MEAN PLT VOLUME 7.3 fl (7.5-11.1); PLATELET COUNT 215 K/MM3 (134-434); RBC 3.49 M/mm3 (4.00-5.60); RDW 15.2 % (11.9-15.9)
[2020-03-26 09:27] LABS: CALCIUM 8.9 mg/dL (8.5-10.1); CREATININE 7.1 mg/dL (0.55-1.3); POTASSIUM 3.2 mmol/L (3.5-5.1)
[2020-03-26 09:36] LABS: BLOOD UREA NITROGEN 31.4 mg/dL (7-18)
--- NOTE | 2020-03-26 09:37 | PN ---
Progress Note (short form) - Note Progress Note: Attending Surgeon POD#4 No c/o; tolerating liquids; seen in HD VSS AF abdo-incision c/d/i; post changes are present; abdo soft and nontympanitic; o/w negative; left groin incision c/d/i and left testicle non tender and non swollen; o/w negative. IMP: improved PLAN: Avance diet as tolerated and office f/u when discharged. Urbano Burk MD FACS
[2020-03-26] MEDS ORDERED: POTASSIUM CHLORIDE ORAL LIQUID 20 MEQ/15 ML PO ONE (09:42)
[2020-03-26] MEDS: SEVELAMER CARBONATE 800 MG TAB (FP) PO SCH ×3 (10:24→17:33)
[2020-03-26] MEDS: CINACALCET HCL 30 MG TAB (FP) PO SCH (13:30)
--- NOTE | 2020-03-26 15:01 | PN ---
Physical Exam: SUBJECTIVE: Patient seen and examined at bedside this morning. no acute events overnight. Patient was able to tolerate full liquid diet at lunch time. Patient feels well and has no complaints. OBJECTIVE: Vital Signs Temperature 99.1 F 03/26/20 18:00 Pulse Rate 74 03/26/20 18:00 Respiratory Rate 18 03/26/20 18:00 Blood Pressure 111/66 03/26/20 18:00 O2 Sat by Pulse Oximetry (%) 96 03/26/20 21:00 GENERAL: The patient is awake, alert, and fully oriented, in no acute distress. HEAD: Normal with no signs of trauma. EYES: PERRLA, EOMI, sclera anicteric, conjunctiva clear. ENT: dry mucous membranes. NECK: supple. LUNGS: Breath sounds equal, clear to auscultation bilaterally HEART: Regular rate and rhythm, S1, S2 ABDOMEN: Soft, nontender, nondistended, normoactive bowel sounds. Dressing C/D/I EXTREMITIES: 2+ pulses, warm, well-perfused, no edema. NEUROLOGICAL: Cranial nerves II through XII grossly intact. Normal speech. PSYCH: Normal mood, normal affect. SKIN: Warm, dry, normal turgor. Laboratory Results - last 24 hr 03/25/20 03/25/20 03/26/20 17:27 21:39 05:59 WBC RBC Hgb Hct MCV MCH MCHC RDW Plt Count MPV Sodium Potassium Chloride Carbon Dioxide Anion Gap BUN Creatinine Est GFR (CKD-EPI)AfAm Est GFR (CKD-EPI)NonAf POC Glucometer 111 103 94 Random Glucose Calcium 03/26/20 03/26/20 03/26/20 08:15 08:15 11:31 WBC 10.0 RBC 3.49 L Hgb 10.8 L Hct 33.9 L MCV 97.1 H MCH 30.9 MCHC 31.9 L RDW 15.2 Plt Count 215 MPV 7.3 L Sodium 136 Potassium 3.2 L Chloride 93 L Carbon Dioxide 35 H Anion Gap 8 BUN 31.4 H Creatinine 7.1 H Est GFR (CKD-EPI)AfAm 9.14 Est GFR (CKD-EPI)NonAf 7.89 POC Glucometer 82 Random Glucose 101 Calcium 8.9 Active Medications Generic Name Dose Route Start Last Admin Trade Name Freq PRN Reason Stop Dose Admin Atorvastatin Calcium 40 mg 03/23/20 22:00 03/25/20 21:27 Lipitor - PO 40 mg HS ANU Administration Calcium Carbonate 500 mg 03/23/20 06:00 03/26/20 13:30 Calcium Carb Oral Suspension - PO 500 mg TID ANU Administration Cinacalcet 60 mg 03/23/20 10:00 03/26/20 13:30 Sensipar - PO 60 mg DAILY ANU Administration Sodium Chloride 250 mls @ 3,000 mls/hr 03/25/20 19:27 Normal Saline - IV 03/26/20 19:27 PRN PRN Hypotension during Dialysis Insulin Aspart 1 vial 03/22/20 22:15 03/26/20 11:54 Novolog Vial Sliding Scale - SQ Not Given TIDAC [facility] Protocol Ondansetron HCl 4 mg 03/24/20 05:35 03/25/20 16:22 Zofran Injection IVPUSH 4 mg Q6H PRN Administration NAUSEA Promethazine HCl 12.5 mg 03/22/20 23:50 Phenergan Injection - IVPUSH Q6H PRN NAUSEA-FOR RESCUE AFTER 15 MIN Sevelamer Carbonate 800 mg 03/23/20 08:00 03/26/20 13:30 Renvela - PO 800 mg TIDCM ANU Administration ASSESSMENT/PLAN: Patient is a 54-year-old male with a past medical history of diabetes, renal disease on dialysis and prostate cancer presented for left-sided testicle pain going on for years increased the day before admission without any precipitating event. Admitted for incarcerated hernia requiring surgery. #Inguinal Hernia -POD 4: L inguinal hernia repair with mesh placement (03/22/2020) -pt comfortable post-op -pain control -advance diet as tolerated -Surgery on board. Appreciated recs. #ESRD -HD today, next HD scheduled on sunday -Nephrology (Dr. Keller) on board #DM -ISS, BGM ACHS #FEN -Not on any standing fluids -electrolytes wnl, routine bmp monitoring -FUll liquid diet, will advance as tolerated #Prophylaxis -Early ambulation -Patient refuses Heparin ppx at this time #Disposition -full code -likely for discharge tomorrow if patient tolerates soft diet starting tonight. To follow up with surgery in clinic. Visit type - Emergency Visit Emergency Visit: Yes ED Registration Date: 03/22/20 Care time: The patient presented to the Emergency Department on the above date and was hospitalized for further evaluation of their emergent condition. - New Patient This patient is new to me today: No - Critical Care Critical Care patient: No ATTENDING PHYSICIAN STATEMENT I saw and evaluated the patient. I reviewed the resident's note and discussed the case with the resident. I agree with the resident's findings and plan as documented. SUBJECTIVE: OBJECTIVE: ASSESSMENT AND PLAN:
--- NOTE | 2020-03-26 15:21 | PN ---
Progress Note, Physician History of Present Illness: Pt seen and examined at bedside. He is awake and alert. He is tolerating clears. - Current Medication List Current Medications: Active Medications Atorvastatin Calcium (Lipitor -) 40 mg PO HS [facility] Last Admin: 03/25/20 21:27 Dose: 40 mg Documented by: Calcium Carbonate (Calcium Carb Oral Suspension -) 500 mg PO TID [facility] Last Admin: 03/26/20 13:30 Dose: 500 mg Documented by: Cinacalcet (Sensipar -) 60 mg PO DAILY [facility] Last Admin: 03/26/20 13:30 Dose: 60 mg Documented by: Sodium Chloride (Normal Saline -) 250 mls @ 3,000 mls/hr IV PRN PRN PRN Reason: Hypotension during Dialysis Stop: 03/26/20 19:27 Insulin Aspart (Novolog Vial Sliding Scale -) 1 vial SQ TIDAC [facility]; Protocol Last Admin: 03/26/20 11:54 Dose: Not Given Documented by: Ondansetron HCl (Zofran Injection) 4 mg IVPUSH Q6H PRN PRN Reason: NAUSEA Last Admin: 03/25/20 16:22 Dose: 4 mg Documented by: Promethazine HCl (Phenergan Injection -) 12.5 mg IVPUSH Q6H PRN PRN Reason: NAUSEA-FOR RESCUE AFTER 15 MIN Sevelamer Carbonate (Renvela -) 800 mg PO TIDCM [facility] Last Admin: 03/26/20 13:30 Dose: 800 mg Documented by: - Objective Vital Signs: Vital Signs Temperature 98.8 F 03/26/20 14:00 Pulse Rate 96 H 03/26/20 14:00 Respiratory Rate 18 03/26/20 14:00 Blood Pressure 114/76 03/26/20 14:00 O2 Sat by Pulse Oximetry (%) 95 03/26/20 09:00 Constitutional: Yes: Calm Eyes: Yes: Conjunctiva Clear HENT: Yes: Atraumatic Cardiovascular: Yes: S1, S2 Respiratory: Yes: CTA Bilaterally Gastrointestinal: Yes: Soft, Other (fany in place) Genitourinary: Yes: WNL Edema: No Neurological: Yes: Oriented Psychiatric: Yes: Oriented Labs: CBC, BMP 03/26/20 08:15 03/26/20 08:15 INR, PTT INR 1.01 (0.83-1.09) 03/22/20 13:00 Problem List - Problems (1) ESRD on hemodialysis Code(s): N18.6 - END STAGE RENAL DISEASE; Z99.2 - DEPENDENCE ON RENAL DIALYSIS (2) Incarcerated left inguinal hernia Code(s): K40.30 - UNIL INGUINAL HERNIA, W OBST, W/O GANGR, NOT SPCF RECUR Assessment/Plan Current Medications Generic Name Dose Route Start Last Admin Trade Name Freq PRN Reason Stop Dose Admin Atorvastatin Calcium 40 mg 03/23/20 22:00 03/25/20 21:27 Lipitor - PO 40 mg HS ANU Administration Calcium Carbonate 500 mg 03/23/20 06:00 03/26/20 13:30 Calcium Carb Oral Suspension - PO 500 mg TID ANU Administration Cinacalcet 60 mg 03/23/20 10:00 03/26/20 13:30 Sensipar - PO 60 mg DAILY ANU Administration Sodium Chloride 250 mls @ 3,000 mls/hr 03/25/20 19:27 Normal Saline - IV 03/26/20 19:27 PRN PRN Hypotension during Dialysis Insulin Aspart 1 vial 03/22/20 22:15 03/26/20 11:54 Novolog Vial Sliding Scale - SQ Not Given TIDAC [facility] Protocol Ondansetron HCl 4 mg 03/24/20 05:35 03/25/20 16:22 Zofran Injection IVPUSH 4 mg Q6H PRN Administration NAUSEA Promethazine HCl 12.5 mg 03/22/20 23:50 Phenergan Injection - IVPUSH Q6H PRN NAUSEA-FOR RESCUE AFTER 15 MIN Sevelamer Carbonate 800 mg 03/23/20 08:00 03/26/20 13:30 Renvela - PO 800 mg TIDCM ANU Administration Impression 1. ESRD 2. hernia 3. htn 4. DM 5. hld 6. elevated psa not evaluated Plan - HD today - pt back in schedule - advance diet as tolerated - renal diet - he has HD set up as outpt for Sunday - will see on Sunday for next HD treatment - cont wound care - surgery follow up
[2020-03-26] MEDS ORDERED: METOCLOPRAMIDE HCL 10 MG TABLET (FP) PO ONE (17:45)
--- NOTE | 2020-03-26 19:17 | PN ---
Teaching Attending Note Name of Resident: Zelda Davis ATTENDING PHYSICIAN STATEMENT I saw and evaluated the patient. I reviewed the resident's note and discussed the case with the resident. I agree with the resident's findings and plan as documented. SUBJECTIVE: Patient seen and examined at bedside, s/p ex-lap POD#4 for hernia incarceration, tolerated full liquid diet, NAD, VSS. OBJECTIVE: GENERAL: Awake, alert, and fully oriented, in no acute distress. AAox3 HEENT NC/aT, mild scleral icterus, neck supple, dry MM, no JVD LUNGS: Breath sounds equal, clear to auscultation bilaterally. No wheezes, and no crackles. No accessory muscle use. HEART: Regular rate and rhythm, normal S1 and S2 without murmur, rub or gallop. ABDOMEN: Abdominal wall dressing, grossly non-tender, no guarding, decreased BS MUSCULOSKELETAL: Normal range of motion at all joints. No bony deformities or tenderness. No CVA tenderness. UPPER EXTREMITIES: 2+ pulses, warm, well-perfused. No cyanosis. No clubbing. No peripheral edema. LUE AVF w/ good thrill LOWER EXTREMITIES: 2+ pulses, warm, well-perfused. No calf tenderness. No peripheral edema. no Scrotal swelling appreciated Vital Signs - 24 hr 03/25/20 03/25/20 03/26/20 20:52 21:00 02:00 Temperature 98.9 F 98.6 F Pulse Rate 73 71 Respiratory 18 18 18 Rate Blood Pressure 122/70 106/63 O2 Sat by Pulse 96 Oximetry (%) 03/26/20 03/26/20 03/26/20 06:00 07:45 08:00 Temperature 98.7 F 97.8 F 98.2 F Pulse Rate 78 78 64 Respiratory 18 18 18 Rate Blood Pressure 115/64 123/74 112/62 O2 Sat by Pulse Oximetry (%) 03/26/20 03/26/20 03/26/20 08:45 09:00 09:15 Temperature Pulse Rate 68 61 Respiratory 18 18 Rate Blood Pressure 114/68 112/70 O2 Sat by Pulse 95 Oximetry (%) 03/26/20 03/26/20 03/26/20 09:45 10:15 10:45 Temperature Pulse Rate 60 66 61 Respiratory 18 18 18 Rate Blood Pressure 102/72 109/67 121/68 O2 Sat by Pulse Oximetry (%) 03/26/20 03/26/20 03/26/20 11:15 11:45 12:00 Temperature Pulse Rate 67 61 60 Respiratory 18 18 18 Rate Blood Pressure 112/74 120/68 212/62 H O2 Sat by Pulse Oximetry (%) 03/26/20 03/26/20 03/26/20 12:34 14:00 18:00 Temperature 98.8 F 99.1 F Pulse Rate 60 96 H 74 Respiratory 18 18 18 Rate Blood Pressure 120/62 114/76 111/66 O2 Sat by Pulse Oximetry (%) Laboratory Results - last 24 hr 03/25/20 03/26/20 03/26/20 21:39 05:59 08:15 WBC 10.0 RBC 3.49 L Hgb 10.8 L Hct 33.9 L MCV 97.1 H MCH 30.9 MCHC 31.9 L RDW 15.2 Plt Count 215 MPV 7.3 L Sodium Potassium Chloride Carbon Dioxide Anion Gap BUN Creatinine Est GFR (CKD-EPI)AfAm Est GFR (CKD-EPI)NonAf POC Glucometer 103 94 Random Glucose Calcium 03/26/20 03/26/20 03/26/20 08:15 11:31 17:27 WBC RBC Hgb Hct MCV MCH MCHC RDW Plt Count MPV Sodium 136 Potassium 3.2 L Chloride 93 L Carbon Dioxide 35 H Anion Gap 8 BUN 31.4 H Creatinine 7.1 H Est GFR (CKD-EPI)AfAm 9.14 Est GFR (CKD-EPI)NonAf 7.89 POC Glucometer 82 86 Random Glucose 101 Calcium 8.9 Home Medications Medication Instructions Recorded Amlodipine Besylate [Norvasc -] 10 mg PO ASDIR 02/24/15 Aspirin [ASA -] 81 mg PO DAILY 02/24/15 Atorvastatin Ca [Lipitor] 20 mg PO HS 02/24/15 Furosemide [Lasix -] 40 mg PO DAILY 02/24/15 Hydralazine HCl 100 mg PO ASDIR 02/24/15 Insulin Glargine,Hum.rec.anlog 15 units SQ HS 02/24/15 [Lantus Solostar PEN -] Sevelamer Carbonate [Renvela -] 800 mg PO TID 02/24/15 Calcium Carbonate [Calcium] 500 mg PO TID 10/09/16 Cinacalcet HCl [Sensipar] 60 mg PO DAILY 10/09/16 Lisinopril [Prinivil -] 40 mg PO ASDIR 10/16/16 oxyCODONE HCL [Roxicodone -] 5 mg PO Q4H PRN #20 tablet MDD 6 03/24/20 Current Medications Generic Name Dose Route Start Last Admin Trade Name Freq PRN Reason Stop Dose Admin Atorvastatin Calcium 40 mg 03/23/20 22:00 03/25/20 21:27 Lipitor - PO 40 mg HS ANU Administration Calcium Carbonate 500 mg 03/23/20 06:00 03/26/20 13:30 Calcium Carb Oral Suspension - PO 500 mg TID ANU Administration Cinacalcet 60 mg 03/23/20 10:00 03/26/20 13:30 Sensipar - PO 60 mg DAILY ANU Administration Sodium Chloride 250 mls @ 3,000 mls/hr 03/25/20 19:27 Normal Saline - IV 03/26/20 19:27 PRN PRN Hypotension during Dialysis Insulin Aspart 1 vial 03/22/20 22:15 03/26/20 17:32 Novolog Vial Sliding Scale - SQ Not Given TIDAC COUNT [facility]CLUD[facility] Protocol Ondansetron HCl 4 mg 03/24/20 05:35 03/25/20 16:22 Zofran Injection IVPUSH 4 mg Q6H PRN Administration NAUSEA Sevelamer Carbonate 800 mg 03/23/20 08:00 03/26/20 17:33 Renvela - PO 800 mg TIDCM ANU Administration ASSESSMENT AND PLAN: 54 M s/p Ex-lap POD #4 for bowel incarceration Inguinal hernia ESRD on HD HTN HLD CHF IDDM Plan: HD as scheduled per renal Full liquid diet >>> regular diet, if tolerates DC with surgery clinic follow up Cont. wound care may follow up in surgery clinic Renal following Surgery following DVT ppx: SCD for now
[2020-03-26] MEDS: ATORVASTATIN CA 40 MG TABLET (FP) PO SCH (21:08)
[2020-03-27] MEDS: CALCIUM CARBONATE SUSPENSION - 500 MG/5 ML ML PO SCH (06:13)
[2020-03-27] MEDS: INSULIN SLIDING SCALE (NOVOLOG) 1 VIAL SQ SCH ×2 (06:16→11:19)
[2020-03-27] MEDS: SEVELAMER CARBONATE 800 MG TAB (FP) PO SCH ×2 (08:09→12:07)
[2020-03-27] MEDS: CINACALCET HCL 30 MG TAB (FP) PO SCH (09:51)
[2020-03-27 09:55] VITALS: BP 124/66; PULSE 578; TEMP 98.9
[2020-03-27] MEDS ORDERED: SIMETHICONE 80 MG TAB.CHEW (FP) PO ONE (10:29)
[2020-03-27 12:01] LABS: BASO % 0.3 % (0-2.0); EOS % 3.7 % (0-4.5); HEMATOCRIT 34.6 % (35.4-49); LYMPH % 12.8 % (8-40); MCH 31.1 pg (25.7-33.7); MCHC 31.7 g/dl (32.0-35.9); MEAN CELL VOLUME 98.1 fl (80-96); MEAN PLT VOLUME 7.2 fl (7.5-11.1); MONO % 6.4 % (3.8-10.2); NEUT % 76.8 % (42.8-82.8); PLATELET COUNT 211 K/MM3 (134-434); RBC 3.53 M/mm3 (4.00-5.60); RDW 15.1 % (11.9-15.9); WHITE BLOOD COUNT 8.1 K/mm3 (4.0-10.0)
[2020-03-27 12:34] LABS: ALBUMIN 2.8 g/dl (3.4-5.0); ALK PHOS 76 U/L (45-117); ANION GAP 8 MMOL/L (8-16); BILIRUBIN,TOTAL 0.3 mg/dL (0.2-1); BLOOD UREA NITROGEN 23.4 mg/dL (7-18); CALCIUM 8.4 mg/dL (8.5-10.1); CHLORIDE 94 mmol/L (98-107); CO2 33 mmol/L (21-32); CREATININE 5.6 mg/dL (0.55-1.3); GLUCOSE,RANDOM 98 mg/dL (74-106); POTASSIUM 3.6 mmol/L (3.5-5.1); SGOT/AST 10 U/L (15-37); SODIUM 135 mmol/L (136-145); TOT PROT 5.8 g/dl (6.4-8.2)
[2020-03-27 12:36] LABS: SGPT/ALT < 6 U/L (13-61)
[2020-03-27 14:41] LABS: ANISOCYTOSIS 1+; MACROCYTOSIS 0; OVALOCYTE 1+; PLATELET ESTIMATE NORMAL; TEAR DROP CELLS 1+
--- NOTE | 2020-04-06 14:27 | DS ---
Physical Exam: SUBJECTIVE: Please see attending's note for physical exam HOSPITAL COURSE: Date of Admission:03/22/20 Date of Discharge: 03/27/20 Patient is a 54-year-old male with a past medical history of diabetes, renal disease on dialysis and prostate cancer presented for left-sided testicle pain going on for years increased the day before admission without any precipitating event. Admitted for incarcerated hernia requiring surgery. #Inguinal Hernia -s/p L inguinal hernia repair with mesh placement (03/22/2020) -pt comfortable post-op -pain control -advance diet as tolerated -Surgery on board. Appreciated recs. #ESRD -HD MWF -Nephrology (Dr. Keller) on board #DM -ISS, BGM ACHS Minutes to complete discharge: 35 Discharge Summary Problems reviewed: Yes Reason For Visit: SCROTAL HERNIA Condition: Stable - Instructions Diet, Activity, Other Instructions: Your visit You were admitted to the hospital because you had an hernial repair surgery. Medications Please continue your home medications. Follow up Please follow up with your primary care doctor in 1 week. Please follow up with surgery (Dr. Burk) in 1-2 weeks. Please call the office to schedule an appointment. Additional info Please call 911 or go to the ED if with any worsening fevers,chills, headache, dizziness chest pain, shortness of breath, abdominal pain, diarrhea, or any new concerns noted. Dr. Burk Discharge Instructions Dear MAHI MCCANN, Post Operative Instructions Physical activity Resume your normal everyday activity as tolerated no heavy lifting or exercise until seen by your surgeon. You may walk unlimited amounts of and climb stairs. You may resume driving the car when you feel safe and comfortable behind the wheel. Wound care If you have a bandage, leave it on, and keep dry for 48 - 72 hours. After that time discard the outer bandage. If there are tapes on the skin under the outer bandage, leave them in place. They will peel off in the next 7 to 10 days. Do Not peel them off. You may shower 2 days after surgery. If there are tapes present on the skin, they can get wet. Diet There are no dietary restrictions. Eat healthy, high-fiber foods. Drink 6 to 8 glasses of liquid each day. This will assist in keeping your bowels are regular. Pain management You may take Tylenol or acetaminophen or Ibuprofen (for example, Motrin, Advil etc.) Any pain prescription medication ordered should be taken as prescribed for moderate to severe pain. Call Dr. Burk for any of the following: Severe pain not relieved by medication Fever of 101 or higher Excessive bleeding or drainage on dressing Inability to urinate Call the office at [phone] for a post operative appointment in 7 - 10 days. Referrals: Urbano Burk MD [Staff Physician] - Easton Keller MD [Staff Physician] - Disposition: HOME - Home Medications Comprehensive Discharge Medication List: Ambulatory Orders Amlodipine Besylate [Norvasc -] 10 mg PO ASDIR 02/24/15 Aspirin [ASA -] 81 mg PO DAILY 02/24/15 Atorvastatin Ca [Lipitor] 20 mg PO HS 02/24/15 Furosemide [Lasix -] 40 mg PO DAILY 02/24/15 Hydralazine HCl 100 mg PO ASDIR 02/24/15 Insulin Glargine,Hum.rec.anlog [Lantus Solostar PEN -] 15 units SQ HS 02/24/15 Sevelamer Carbonate [Renvela -] 800 mg PO TID 02/24/15 Calcium Carbonate [Calcium] 500 mg PO TID 10/09/16 Cinacalcet HCl [Sensipar] 60 mg PO DAILY 10/09/16 Lisinopril [Prinivil -] 40 mg PO ASDIR 10/16/16 oxyCODONE HCL [Roxicodone -] 5 mg PO Q4H PRN #20 tablet MDD 6 03/24/20 This patient is new to me today: No Emergency Visit: No Critical Care patient: No - Discharge Referral Referred to [facility] Med P.C.: No ATTENDING PHYSICIAN STATEMENT I saw and evaluated the patient. I reviewed the resident's note and discussed the case with the resident. I agree with the resident's findings and plan as documented. SUBJECTIVE: OBJECTIVE: ASSESSMENT AND PLAN:
== END 2020-03-27 12:58 | disposition home or self-care (01) | DRG 350 ==
LOC: JER 10:33 → JERBED 12:36 → J5S 23:39
PROC: 5A1D70Z Performance of Urinary Filtration, Intermittent, Less than 6 Hours Per Day (ICD-10-PCS; 2020-03-23)
PROC: 0YU60JZ Supplement Left Inguinal Region with Synthetic Substitute, Open Approach (ICD-10-PCS; principal; 2020-03-24)
PROC: 0WQF0ZZ Repair Abdominal Wall, Open Approach (ICD-10-PCS; 2020-03-24)
PROC: 5A1D70Z Performance of Urinary Filtration, Intermittent, Less than 6 Hours Per Day (ICD-10-PCS; 2020-03-25)
PROC: 5A1D70Z Performance of Urinary Filtration, Intermittent, Less than 6 Hours Per Day (ICD-10-PCS; 2020-03-26)
DX: K40.30 Unilateral inguinal hernia, with obstruction, without gangrene, not specified as recurrent (principal); N18.6 End stage renal disease; K43.0 Incisional hernia with obstruction, without gangrene; I13.2 Hypertensive heart and chronic kidney disease with heart failure and with stage 5 chronic kidney disease, or end stage renal disease; K91.89 Other postprocedural complications and disorders of digestive system; C61 Malignant neoplasm of prostate; R11.2 Nausea with vomiting, unspecified; E11.22 Type 2 diabetes mellitus with diabetic chronic kidney disease; I50.9 Heart failure, unspecified; Z99.2 Dependence on renal dialysis; E78.5 Hyperlipidemia, unspecified
CPT/HCPCS: 36415; 71045-TC-FY; 74019-TC-FY; 76870-TC; 80048; 80053; 82550; 82962; 84153; 85025; 85027; 85610; 86704; 86706; 86707; 86708; 86709; 86803; 86850; 86900; 86901; 87340; 88302-TC; 90670; 93005; 93010; 94010; 94760; 99285-25; J0131; U0003

== ENCOUNTER 2024-01-06 01:10 | Emergency (ER) | payer OTHER ==
[2024-01-06] MEDS: ALBUTEROL SO4 2.5/IPRATROPIUM 0.5 INH SOL 3 ML VIAL.NEB. NEB SCH (01:10)
[2024-01-06 01:14] VITALS: BMI 26.7
[2024-01-06] MEDS ORDERED: ALBUTEROL SO4 2.5/IPRATROPIUM 0.5 INH SOL 3 ML VIAL.NEB. NEB ONE (01:19)
[2024-01-06] MEDS ORDERED: methylPREDNISolone NA SUCC 125 MG/2 ML VIAL ONE (01:41)
[2024-01-06 01:47] LABS: HEMATOCRIT 27.7 % (35.4-49); HEMOGLOBIN 8.8 GM/dL (11.7-16.9); MCH 28.7 pg (25.7-33.7); MCHC 31.8 g/dl (32.0-35.9); MEAN CELL VOLUME 90.2 fl (80-96); MEAN PLT VOLUME 7.2 fl (7.5-11.1); PLATELET COUNT 119 10^3/uL (134-434); RBC 3.07 M/mm3 (4.00-5.60); RDW 18.8 % (11.9-15.9); WHITE BLOOD COUNT 2.7 K/mm3 (4.0-10.0)
[2024-01-06] MEDS ORDERED: DEXAMETHASONE SOD PHOSPHATE 10 MG/1 ML VIAL ONE (01:48)
[2024-01-06] MEDS: methylPREDNISolone NA SUCC 125 MG/2 ML VIAL IVPUSH ONE (01:57)
[2024-01-06 02:03] LABS: VENOUS BASE EXCESS -6.8 mmol/L (-2-2); VENOUS O2 SATURATION 44.7 % (70-80); VENOUS PCO2 47.9 mmHg (38-52); VENOUS PH 7.245 (7.310-7.410)
[2024-01-06 02:09] LABS: CHLORIDE 113 mmol/L (98-107); SODIUM 136 mmol/L (136-145)
[2024-01-06 02:11] LABS: ALBUMIN 4.2 g/dl (3.4-5.0); BLOOD UREA NITROGEN 36.4 mg/dL (7-18); CALCIUM 10.3 mg/dL (8.5-10.1); CO2 24 mmol/L (21-32); GLUCOSE,RANDOM 125 mg/dL (74-106)
[2024-01-06 02:14] LABS: CREATININE 1.8 mg/dL (0.55-1.3); SGOT/AST 18 U/L (15-37); SGPT/ALT 15 U/L (13-61)
[2024-01-06 02:16] LABS: BILIRUBIN,TOTAL 0.5 mg/dL (0.2-1); TOT PROT 6.9 g/dl (6.4-8.2)
[2024-01-06 02:17] LABS: ALK PHOS 119 U/L (45-117)
[2024-01-06 02:23] LABS: ANION GAP -1 mmol/L (4-13); POTASSIUM 6.3 mmol/L (3.5-5.1)
[2024-01-06] MEDS ORDERED: ACETAMINOPHEN 325 MG TABLET (FP) ONE (02:47)
[2024-01-06] MEDS: DEXAMETHASONE 4 MG TABLET (FP) PO ONE (03:00)
[2024-01-06] MEDS: ACETAMINOPHEN 500 MG TABLET (FP) PO ONE (03:15)
[2024-01-06 03:25] LABS: N-TERMINAL BNP 8515.6 pg/ml (5-125)
[2024-01-06 05:20] VITALS: BP 173/87; PULSE 86; RESP 18; TEMP 98.2
== END 2024-01-06 05:43 | disposition home or self-care (01) ==
LOC: JER 01:10
DX: R06.02 Shortness of breath (principal); R07.89 Other chest pain; R10.84 Generalized abdominal pain; U07.1 COVID-19
CPT/HCPCS: 0241U-QW; 36415; 71045-TC-FY; 80053; 82803; 83690; 83880; 84484; 85025; 93005; 93010; 99285-25